=== PATIENT | male | born 1985 | race Caucasian/White ===

== ENCOUNTER 2019-02-21 02:41 | Observation (INO) | payer SELFPAY ==
[~2019-02-21] VITALS: Ht 188 cm; Wt 111.6 kg
[2019-02-21] VITALS (7 sets, daily range): BP systolic 126–139; BP diastolic 82–93
[2019-02-21] MEDS ORDERED: SODIUM CHLORIDE 0.9% 1000ML 1,000 ML IV STA ×2 (02:45→03:27)
[2019-02-21] MEDS ORDERED: PANTOPRAZOLE 40 MG 10ML VIAL IV STA (02:45)
[2019-02-21] MEDS ORDERED: CEFEPIME HCL 2 GM VIAL IV ONE (02:45)
[2019-02-21] MEDS ORDERED: MORPHINE SULFATE INJ 4 MG/ML INJ 1ML IV STA (02:45)
[2019-02-21] MEDS ORDERED: ONDANSETRON HCL INJ 2MG/ML 2ML 2 MG/ML VIAL IV ONE (02:45)
[2019-02-21] MEDS ORDERED: ONDANSETRON HCL INJ 2MG/ML 2ML 2 MG/ML VIAL ONE (03:04)
[2019-02-21] MEDS ORDERED: PANTOPRAZOLE 40 MG 10ML VIAL ONE (03:05)
[2019-02-21] MEDS ORDERED: SODIUM CHLORIDE 0.9% 100 ML ONE (03:06)
[2019-02-21] MEDS ORDERED: no home meds (03:14)
[2019-02-21 03:15] LABS: BASOPHILS % 0.3 % (0.0-1.0); EOSINOPHILS % 0.2 % (0.0-6.0); HEMATOCRIT 48.5 % (38.2-49.6); HEMOGLOBIN 17.1 g/dL (14.0-18.0); LYMPHOCYTES # (AUTO) 2.3 (1.0-3.2); LYMPHOCYTES % 17.2 % (18.0-39.1); MEAN CORPUSCULAR HEMOGLOBIN 32.8 pg (28-32); MEAN CORPUSCULAR HGB CONC 35.3 g/dL (31-35); MEAN CORPUSCULAR VOLUME 93.1 fL (81-99); MONOCYTES # (AUTO) 0.8 (0.2-0.8); MONOCYTES % 6.4 % (4.4-11.3); NEUTROPHILS # (AUTO) 9.9 (2.1-6.9); NEUTROPHILS % 75.6 % (38.7-80.0); PLATELET COUNT 330 x10e3/uL (140-360); RED BLOOD COUNT 5.21 x10e6/uL (4.3-5.7); RED CELL DISTRIBUTION WIDTH 13.9 % (11.7-14.4)
[2019-02-21 03:21] LABS: INR 0.91; PROTHROMBIN TIME 12.7 seconds (11.9-14.5)
[2019-02-21 03:22] LABS: PARTIAL THROMBOPLASTIN TIME 27.4 seconds (23.8-35.5)
[2019-02-21 03:31] LABS: ALBUMIN 3.7 g/dL (3.5-5.0); ALBUMIN/GLOBULIN RATIO 0.9 (0.8-2.0); ANION GAP 20.1 mmol/L (8-16); CALCIUM 9.7 mg/dL (8.4-10.2); CREATININE, SERUM 1.47 mg/dL (0.72-1.25); POTASSIUM 3.1 mmol/L (3.5-5.1)
[2019-02-21] MEDS ORDERED: DIPHENHYDRAMINE HCL INJ 50 MG/ML VIAL IV PRN (03:45)
[2019-02-21] MEDS ORDERED: PROMETHAZINE 25MG/ NS 50ML (IV) IV PRN (03:45)
[2019-02-21] MEDS: D5.45%NS/KCL 20MEQ 1,000 ML IV SCH ×3 (03:55→19:45)
[2019-02-21] MEDS ORDERED: D5.45%NS/KCL 20MEQ 1,000 ML IV SCH (03:57)
--- NOTE | 2019-02-21 04:30 | NUR ---
Pt arrived to the unit from er in a stretcher with c/o n/v/ abd pain.aaox3.ambulates.iv #20 g to right ac.pt is nauseated.medication given.assessment done.no resp.distress.as per report from er is aware of the consults.oriented to the unit.bed locked and in lowest position.phone and call light within reach.instructed to call for assistance as needed.maintaining npo.
--- NOTE | 2019-02-21 04:39 | Diagnostic Imaging Report ---
EXAMINATION: ABDOMEN ACUTE SERIES W/PA CXR INDICATION: ^abdominal pain, mid chest pain COMPARISON: None FINDINGS: TUBES and LINES: None. LUNGS: Lungs are well inflated. There are bibasilar atelectasis. There is no evidence of pneumonia or pulmonary edema. PLEURA: No pleural effusion or pneumothorax. HEART AND MEDIASTINUM: The cardiomediastinal silhouette is unremarkable. BONES AND SOFT TISSUES: No acute osseous lesion. Soft tissues are unremarkable. ABDOMEN: No free air under the diaphragm. IMPRESSION: No acute thoracic abnormality. No acute abdominal abnormality. Signed by: Dr. Mauro Uriostegui M.D. on 02/21/2019 4:36 AM
--- NOTE | 2019-02-21 06:50 | NUR ---
REPORT GIVEN TO THE ONCOMING RN.WALKING ROUNDS DONE.STABLE CONDITION.
--- NOTE | 2019-02-21 07:34 | NUR ---
RECEIVED PATIENT IN REPORT THIS AM. PATIENT AWAKE IN BED NO SIGNS OF DISTRESS AT THIS TIME. CALL LIGHT IN REACH WILL CONTINUE TO MONITOR.
[2019-02-21] MEDS: ONDANSETRON HCL INJ 2MG/ML 2ML 2 MG/ML VIAL IV PRN ×4 (07:56→21:05)
[2019-02-21] MEDS: MORPHINE SULFATE INJ 4 MG/ML INJ 1ML IV PRN ×4 (07:57→21:05)
[2019-02-21] MEDS ORDERED: PANTOPRAZOLE 40 MG 10ML VIAL IV SCH (09:00)
--- NOTE | 2019-02-21 09:45 | NUR ---
PATIENT A/O X3, EVEN RESPIRATIONS ON RA. BOWEL SOUNDS ACTIVE, SKIN INTACT, NO EDEMA. NO VOMITING THIS MORNING. PATIENT NPO AT THIS TIME FOR POSSIBLE EGD TODAY. RIGHT AC 20 GAUGE WITH [id number] @ 125 CC/HR. PATIENT AMBULATORY AND VOIDS IN TOILET. CALL LIGHT IN REACH WILL CONTINUE TO MONITOR.
[2019-02-21] MEDS ORDERED: POTASSIUM CHLORIDE 20 MEQ TAB CR PO NR (10:30)
[2019-02-21 12:10] LABS: BASOPHILS % 0.1 % (0.0-1.0); HEMATOCRIT 42.3 % (38.2-49.6); HEMOGLOBIN 14.2 g/dL (14.0-18.0); LYMPHOCYTES # (AUTO) 1.3 (1.0-3.2); MEAN CORPUSCULAR HEMOGLOBIN 32.7 pg (28-32); MEAN CORPUSCULAR HGB CONC 33.6 g/dL (31-35); MEAN CORPUSCULAR VOLUME 97.5 fL (81-99); MONOCYTES # (AUTO) 0.9 (0.2-0.8); MONOCYTES % 5.8 % (4.4-11.3); NEUTROPHILS # (AUTO) 13.7 (2.1-6.9); NEUTROPHILS % 85.7 % (38.7-80.0); PLATELET COUNT 232 x10e3/uL (140-360); RED BLOOD COUNT 4.34 x10e6/uL (4.3-5.7); RED CELL DISTRIBUTION WIDTH 14.5 % (11.7-14.4)
--- NOTE | 2019-02-21 14:30 | NUR ---
PATIENT LEFT FOR EGD AT THIS TIME.
--- NOTE | 2019-02-21 15:38 | NUR ---
PATIENT BACK FROM EGD AT THIS TIME. FULL LIQUID DIET
[2019-02-21] MEDS: FAMOTIDINE 20 MG/2 ML VIAL IV SCH (16:57)
[2019-02-21] MEDS: SUCRALFATE 1 GM/10 ML SUSP NG SCH ×2 (16:57→21:07)
--- NOTE | 2019-02-21 17:32 | Consultation ---
DATE OF CONSULTATION: Gastroenterology Consultation REASON FOR CONSULTATION: Hematemesis. HISTORY OF PRESENT ILLNESS: Mr. Lopez is a pleasant 33-year-old man with below past medical history with insignificant alcohol consumption and heart burn. He yesterday started having severe epigastric pain and reflux with retrosternal burning causing vomiting. He vomited moderate amount of bright red blood. He has not had a bowel movement. He has never had upper endoscopy. He does take antiacids regularly. He has also been drinking. He has elevated LFTs. PAST MEDICAL HISTORY: Migraine. PAST SURGICAL HISTORY: None. FAMILY HISTORY: Positive for cancer in the family including pancreatic. SOCIAL HISTORY: Positive for tobacco, alcohol. MEDICATIONS: Reviewed. Please see [facility] medication reconciliation form. ALLERGIES: REVIEWED. PLEASE SEE [facility] MEDICATION RECONCILIATION FORM. REVIEW OF SYSTEMS: A 12-system review is positive for that mentioned in HPI, otherwise unremarkable. PHYSICAL EXAMINATION: GENERAL: He is calm, alert and oriented, in no acute distress. HEENT: Pupils are equal, round, and reactive to light. NECK: Supple. LUNGS: Clear. CARDIOVASCULAR: S1 and S2. ABDOMEN: Soft, nontender, nondistended. Normal bowel sounds. EXTREMITIES: No clubbing, cyanosis or edema. PSYCHIATRIC: Calm, cooperative. NEUROLOGIC: Nonfocal. HEME/ONC: No bruising or adenopathy. SKIN: He has telangiectasia across his upper chest. Electronic health records were reviewed for laboratory and radiologic studies as well as history. ASSESSMENT: 1. Hematemesis. 2. Alcohol. 3. Migraines. 4. Elevated LFTs, likely alcohol related, unclear at the current time, as he has an underlying chronic liver disease related to this. 5. Spider telangiectasias. PLAN: At the current time, he will continue on H2 escobar. Unfortunately, there is no Protonix available in the hospital due to nation wide shortages per nursing staff. We are replacing his hypokalemia. We will repeat potassium. We will plan for upper endoscopy at our earliest availability. The procedure and risks discussed with him in detail. Thank you very much for asking me to see Mr. Lopez. Any questions or concerns, please do not hesitate to contact me. Gloria Nascimento MD RLS/GERARDO /[id number]
--- NOTE | 2019-02-21 18:10 | Diagnostic Imaging Report ---
EXAM: Right Upper Quadrant Ultrasound INDICATION: Elevated liver function test ^elevated lft COMPARISON: None. TECHNIQUE: Transverse and longitudinal images of the right upper abdomen were obtained. FINDINGS: Liver: Size: 13.6 cm in the right midclavicular line, normal Appearance: Normal echogenicity, smooth contour Mass: No focal masses Gallbladder: Stones/Sludge: None Wall: 0.2 cm Appearance: No wall thickening, pericholecystic fluid or hydrops. Sonographic Smith's Sign: Negative Bile Ducts: Intrahepatic Ducts: No dilatation Extrahepatic Ducts: Common bile duct measures 0.4 cm, no dilatation Pancreas: Not well seen Kidneys: Length: Right 10.2 cm Echogenicity: Normal Collecting System: No hydronephrosis Stone: None Cyst/Mass: None Vessels: Aorta: Not well seen Inferior Vena Cava: Visualized portions are normal Main Portal Vein: 0.9 cm, normal size with hepatopetal flow. Free Fluid: No ascites or pleural effusion IMPRESSION: Slightly limited study due to overlying bowel gas. Otherwise, unremarkable abdominal ultrasound. Signed by: Dr. Rogelio Garcia M.D. on 02/21/2019 6:07 PM
[2019-02-21] MEDS ORDERED: MIDAZOLAM HCL 2 MG/2 ML VIAL ONE (18:13)
[2019-02-21] MEDS ORDERED: FENTANYL CITRATE/PF 100MCG/2 ML INJ ONE (18:13)
[2019-02-21 18:14] LABS: BASOPHILS % 0.2 % (0.0-1.0); EOSINOPHILS % 0.1 % (0.0-6.0); HEMATOCRIT 41.4 % (38.2-49.6); HEMOGLOBIN 13.7 g/dL (14.0-18.0); LYMPHOCYTES # (AUTO) 2.1 (1.0-3.2); LYMPHOCYTES % 16.9 % (18.0-39.1); MEAN CORPUSCULAR HEMOGLOBIN 32.6 pg (28-32); MEAN CORPUSCULAR HGB CONC 33.1 g/dL (31-35); MEAN CORPUSCULAR VOLUME 98.6 fL (81-99); MONOCYTES # (AUTO) 0.9 (0.2-0.8); MONOCYTES % 7.3 % (4.4-11.3); NEUTROPHILS # (AUTO) 9.3 (2.1-6.9); NEUTROPHILS % 75.3 % (38.7-80.0); PLATELET COUNT 216 x10e3/uL (140-360); RED CELL DISTRIBUTION WIDTH 14.6 % (11.7-14.4)
[2019-02-21] MEDS ORDERED: PROPOFOL IV EMULSION 10 MG/ML 20 ML VIAL ONE (18:26)
[2019-02-21] MEDS ORDERED: LIDOCAINE HCL 2% LOCAL INJ 5 ML SDV VIAL INJ ONE (18:26)
[2019-02-22] VITALS: BP 147/79
[2019-02-22] MEDS: MORPHINE SULFATE INJ 4 MG/ML INJ 1ML IV PRN ×4 (01:16→10:31)
[2019-02-22] MEDS: ONDANSETRON HCL INJ 2MG/ML 2ML 2 MG/ML VIAL IV PRN (01:16)
--- NOTE | 2019-02-22 02:14 | History and Physical ---
CHIEF COMPLAINT: Hematemesis, nausea, vomiting, retching. HISTORY OF PRESENT ILLNESS: This is a 33-year-old male, chronic alcohol abuser, about 3 to 4 cans of beer daily; morbidly obese; no other medical issues, comes in with complaints of nausea, vomiting, abdominal pain, and questionable hematemesis that began yesterday. The patient reports that he feels his epigastric burning, ongoing for the last day or two with no relief. He also reports some abdominal pain. Has decreased oral intake. He denies any NSAID use at home. Denies any rectal bleeding or any melenic stool. The patient seen and evaluated at bedside on the medical floor. He is currently doing well, requiring antinausea medication. REVIEW OF SYSTEMS: Pertinent positives: Nausea, vomiting, abdominal pain. Pertinent negative: Denies any chest pain, palpitation, dysuria, hematuria, frequency, urgency, lightheadedness, dizziness, cough, congestion, fever, or any other complaints. The rest of 14-point review of systems have been reviewed with the patient and are negative. ALLERGIES: NO KNOWN DRUG ALLERGIES. HOME MEDICATIONS: None. PAST MEDICAL HISTORY: Chronic alcohol abuser. No other medical issues. FAMILY HISTORY: Hypertension and diabetes. SOCIAL HISTORY: No drugs. He is a social smoker. He does drink several times a day, 3 to 4 beers he reports. PHYSICAL EXAMINATION: VITAL SIGNS: Temperature 99.4, pulse is 100, respiratory rate 20, blood pressure 131/82, pulse ox 98% on room air. GENERAL: No acute distress. Alert and oriented x3. Cooperative on examination. HEENT: Head is normocephalic and atraumatic. Eyes; pupils are equal, round, and reactive to light bilaterally. Extraocular movements are intact bilaterally. NECK: Supple. Good range of motion. Throat, no evidence of erythema or exudate in the posterior pharynx. Has poor dentition. PULMONARY: Clear to auscultation bilaterally. No wheezes, rales, rhonchi, or crackles appreciated. CARDIOVASCULAR: Positive S1, S2. No murmurs, rubs or gallop. ABDOMEN: Soft, nontender, nondistended on palpation. Bowel sounds present. MUSCULOSKELETAL: Strength is 5/5 throughout. No evidence of any muscle deficits on examination. No weakness appreciated. NEUROLOGIC: Cranial nerves II through XII grossly intact. No evidence of any neurological deficits on exam. SKIN: Intact. Warm to touch. Good cap refill. PSYCHIATRIC: Normal affect and mood. EXTREMITIES: No edema. Good range of motion throughout. LAB FINDINGS: Show white count 12, hemoglobin 13.7, hematocrit 41, platelets of 216. Chemistry: Sodium is 137, potassium 3.1, chloride 93, bicarb 24. Anion gap 20. BUN 12, creatinine 1.47. His glucose is 120, calcium 9.7. Total bilirubin was 2.3, AST 252, ALT 163, alkaline phosphatase 103, total protein 7.8, lipase is 37. IMAGING STUDIES: Abdominal x-ray shows no abnormalities. Abdominal ultrasound was consistent, which is just some overlying bowel gas. IMPRESSION: 1. Hematemesis, likely secondary to underlying gastritis. 2. Chronic alcohol abuse. 3. Elevated LFTs, likely alcohol related. 4. Morbidly obese. PLAN: At this time, we are going to continue with IV H2 blockers as currently Protonix is on back order. Replace electrolytes. Continue n.p.o. for now. GI has been consulted, will likely need EGD. We will get a.m. labs. Once he is approved, maybe we could start him on clear liquid diet if GI is in agreement. MD JOSE Tracy/GERARDO /[id number]
[2019-02-22 04:00] VITALS: BP 131/81
[2019-02-22] MEDS: D5.45%NS/KCL 20MEQ 1,000 ML IV SCH (04:15)
[2019-02-22] MEDS: FAMOTIDINE 20 MG/2 ML VIAL IV SCH (05:22)
[2019-02-22 06:33] LABS: BASOPHILS % 0.4 % (0.0-1.0); EOSINOPHILS % 0.3 % (0.0-6.0); HEMATOCRIT 36.1 % (38.2-49.6); LYMPHOCYTES # (AUTO) 2.4 (1.0-3.2); LYMPHOCYTES % 34.6 % (18.0-39.1); MEAN CORPUSCULAR HEMOGLOBIN 32.8 pg (28-32); MEAN CORPUSCULAR HGB CONC 33.2 g/dL (31-35); MEAN CORPUSCULAR VOLUME 98.6 fL (81-99); MONOCYTES # (AUTO) 0.6 (0.2-0.8); MONOCYTES % 8.8 % (4.4-11.3); NEUTROPHILS # (AUTO) 3.9 (2.1-6.9); NEUTROPHILS % 55.5 % (38.7-80.0); PLATELET COUNT 184 x10e3/uL (140-360); RED BLOOD COUNT 3.66 x10e6/uL (4.3-5.7); RED CELL DISTRIBUTION WIDTH 14.6 % (11.7-14.4)
[2019-02-22 06:57] LABS: ALANINE AMINOTRANSFERASE 83 IU/L (0-55); ALBUMIN 2.4 g/dL (3.5-5.0); ALBUMIN/GLOBULIN RATIO 0.8 (0.8-2.0); ALKALINE PHOSPHATASE 71 IU/L (40-150); BLOOD UREA NITROGEN 6 mg/dL (7-26); BUN/CREATININE RATIO 6 (6-25); CALCIUM 7.9 mg/dL (8.4-10.2); CARBON DIOXIDE 28 mmol/L (22-29); CHLORIDE 105 mmol/L (98-107); CREATININE, SERUM 1.03 mg/dL (0.72-1.25); EST GLOMERULAR FILTRATION RATE > 60 ML/MIN (60-); GLUCOSE 110 mg/dL (74-118); SODIUM 138 mmol/L (136-145)
[2019-02-22] MEDS: SUCRALFATE 1 GM/10 ML SUSP NG SCH ×2 (09:07→11:46)
[2019-02-22 09:37] VITALS: BP 139/90
[2019-02-22 11:39] VITALS: BP 139/90
[2019-02-22] MEDS ORDERED: TRAMADOL HCL 50 MG TAB PO NR (12:15)
[2019-02-22 12:29] VITALS: BP 128/81
[2019-02-22] MEDS ORDERED: ULTRAM50 MG PO (14:11)
[2019-02-22] MEDS ORDERED: PANTOPRAZOLE SO40 MG PO (14:12)
[2019-02-22] MEDS ORDERED: CARAFATE1 GM/10 ML PO (14:13)
--- NOTE | 2019-02-22 14:43 | NUR ---
PATIENT VOICED THAT DISCHARGE INSTRUCTIONS WERE UNDERSTOOD, IV REMOVED, WHEELED OUT VIA WHEELCHAIR, AND DEPARTED IN VEHICLE
--- NOTE | 2019-02-22 18:48 | Discharge Summary ---
FINAL DISCHARGE DIAGNOSES: 1. Status post esophagogastroduodenoscopy that showed gastritis, esophagitis, and the peptic ulcer that was actively bleeding, but much improved. 2. Abdominal pain secondary to end-stage renal disease. 3. Chronic alcohol abuse. 4. Elevated transaminases secondary to alcohol abuse. CONSULTANTS: GI. VITAL SIGNS: Temperature 98, pulse 85, respiratory rate is 20, blood pressure 129/90, and pulse ox is 94% on room air. LABORATORY DATA: Lab findings show white count 6.9, hemoglobin 12, hematocrit is 36.1, and platelets of 184. Chemistry; sodium 138, potassium 4, chloride 105, bicarb 28, anion gap of 9, BUN is 6, creatinine is 1, calcium is 7.9. Total bilirubin is 2.2, AST 89, ALT 83, alkaline phosphatase 71, albumin 2.4. Lipase was 37. Coagulation; PT 12, INR 0.91, PTT 27. IMAGING STUDIES: Abdominal ultrasound shows otherwise unremarkable abdominal ultrasound with negative findings. X-ray of the abdomen was negative. HOSPITAL COURSE: This is a 33-year-old male, who came into the ED with complaints of abdominal pain, nausea, vomiting. GI was consulted. Imaging studies with abdominal ultrasound found to be negative. X-ray of the abdomen also found to be negative. The patient underwent EGD that showed gastritis, esophagitis and a peptic ulcer that was actively bleeding. It was cauterized. The patient was started on Pepcid twice daily while here in the hospital. The patient's labs were stable now. There is no evidence of any active bleeding. The patient was then cleared for discharge by GI for discharge home. The patient was advised to follow up with GI and PCP in about one week's time. The patient was educated about alcohol cessation. On the day of discharge, vital signs stable, labs are stable. The patient was seen and evaluated, examined thoroughly on the day of discharge and no other complaints. The patient verbalized understanding and agreed to plan of care, with followup appointment as an outpatient with the primary care physician in 1 week time and GI in 1-2 weeks' time. MEDICATIONS: See med reconciliation form. DISPOSITION: Home. CONDITION: Stable. DIET: Heart healthy. In any event of new or worsening symptoms, the patient is advised to come back to the ED for further evaluation. Discharge summary took greater than 35 minutes. Once again, the patient has been cleared for discharge by GI. MD JOSE Tracy/GERARDO /[id number]
== END 2019-02-22 14:37 | disposition home or self-care (01) ==
LOC: ER 02:41 → ERHOLD 03:57 → MED/SURG 04:28
PROVIDERS: ADMIT Internal Medicine; ATTEND Internal Medicine
DX: K29.70 Gastritis, unspecified, without bleeding (principal); K25.4 Chronic or unspecified gastric ulcer with hemorrhage; F10.20 Alcohol dependence, uncomplicated; K76.9 Liver disease, unspecified; E66.01 Morbid (severe) obesity due to excess calories; Z68.31 Body mass index [BMI] 31.0-31.9, adult
CPT/HCPCS: 36415 ×2; 43239; 43255; 74022; 76705; 80053 ×2; 83690; 84132; 85025 ×2; 85610; 85730; 86850; 86900; 88305; 88312; 93005; 96374; 99284; C9113; G0378 ×2; J0692; J2001; J2250; J2270 ×2; J2405 ×2; J2550; J2704; J7030; J7050

== ENCOUNTER 2021-07-27 09:44 | Inpatient (IN) | payer OTHER, SELFPAY ==
[~2021-07-27] VITALS: Ht 188 cm; Wt 151.5 kg
[~2021-07-27 09:44] MED LIST: CARAFATE1 GM/10 ML PO; PANTOPRAZOLE SO40 MG PO; ULTRAM50 MG PO; no home meds
[2021-07-27] MEDS ORDERED: IBUPROFEN 600 MG TAB PO NR (10:00)
[2021-07-27] MEDS ORDERED: SODIUM CHLORIDE 0.9% 1000ML 1,000 ML IV SCH (10:00)
[2021-07-27] MEDS ORDERED: DEXAMETHASONE SOD PHOS 10 MG/1 ML VIAL IV NR (10:00)
[2021-07-27 10:05] LABS: BASOPHILS % 0.2 % (0.0-1.0); HEMATOCRIT 49.1 % (38.2-49.6); LYMPHOCYTES # (AUTO) 0.6 (1.0-3.2); LYMPHOCYTES % 12.9 % (18.0-39.1); MEAN CORPUSCULAR HEMOGLOBIN 32.1 pg (28-32); MEAN CORPUSCULAR HGB CONC 32.6 g/dL (31-35); MEAN CORPUSCULAR VOLUME 98.6 fL (81-99); MONOCYTES # (AUTO) 0.1 (0.2-0.8); MONOCYTES % 2.8 % (4.4-11.3); NEUTROPHILS # (AUTO) 3.6 (2.1-6.9); NEUTROPHILS % 83.4 % (38.7-80.0); PLATELET COUNT 197 x10e3/uL (140-360); RED BLOOD COUNT 4.98 x10e6/uL (4.3-5.7); RED CELL DISTRIBUTION WIDTH 13.8 % (11.7-14.4)
[2021-07-27 10:26] LABS: ALBUMIN 3.2 g/dL (3.5-5.0); ALBUMIN/GLOBULIN RATIO 0.7 (0.8-2.0); ANION GAP 19.3 mmol/L (8-16); CALCIUM 9.1 mg/dL (8.4-10.2); CREATININE, SERUM 0.96 mg/dL (0.72-1.25); POTASSIUM 4.3 mmol/L (3.5-5.1)
[2021-07-27] MEDS ORDERED: ENOXAPARIN INJ 80 MG/0.8 ML SYR SC NR (11:10)
[2021-07-27] MEDS ORDERED: REMDESIVIR 200MG 200 MG in SODIUM CHLORIDE 0.9% 100 ML IV ONE (11:30)
[2021-07-27] MEDS ORDERED: Morphine 4mg Syringe 4 MG/ML INJ IV PRN (11:45)
[2021-07-27] MEDS: ASCORBIC ACID 500 MG TAB PO SCH (17:52)
[2021-07-27] MEDS ORDERED: CEFTRIAXONE 1 GM in SODIUM CHLORIDE 0.9% 50ML 50 ML IV SCH (18:00)
[2021-07-27] MEDS: ACETAMINOPHEN 325 MG TAB PO PRN (19:54)
[2021-07-28] VITALS (11 sets, daily range): BP systolic 113–138; BP diastolic 82–105
[2021-07-28 05:41] LABS: BASOPHILS % 0.3 % (0.0-1.0); HEMATOCRIT 46.2 % (38.2-49.6); HEMOGLOBIN 15.3 g/dL (14.0-18.0); LYMPHOCYTES % 25.2 % (18.0-39.1); MEAN CORPUSCULAR HEMOGLOBIN 32.4 pg (28-32); MEAN CORPUSCULAR HGB CONC 33.1 g/dL (31-35); MEAN CORPUSCULAR VOLUME 97.9 fL (81-99); MONOCYTES # (AUTO) 0.3 (0.2-0.8); MONOCYTES % 7.5 % (4.4-11.3); NEUTROPHILS # (AUTO) 2.6 (2.1-6.9); NEUTROPHILS % 66.7 % (38.7-80.0); PLATELET COUNT 183 x10e3/uL (140-360); RED BLOOD COUNT 4.72 x10e6/uL (4.3-5.7); RED CELL DISTRIBUTION WIDTH 13.3 % (11.7-14.4)
[2021-07-28 06:29] LABS: ALBUMIN 2.7 g/dL (3.5-5.0); ALBUMIN/GLOBULIN RATIO 0.7 (0.8-2.0); ANION GAP 17.3 mmol/L (8-16); CALCIUM 8.3 mg/dL (8.4-10.2); CREATININE, SERUM 0.79 mg/dL (0.72-1.25); MAGNESIUM 1.3 MG/DL (1.3-2.1); POTASSIUM 4.3 mmol/L (3.5-5.1)
[2021-07-28 08:15] LABS: LYMPHOCYTES % (MANUAL) 30 % (19-48); MONOCYTES % (MANUAL) 5 % (3.4-9.0); NEUTROPHILS % (MANUAL) 65 % (40-74)
[2021-07-28 08:16] LABS: PLATELET ESTIMATE ADEQUATE; PLATELET MORPHOLOGY COMMENT FEW LARGE; RBC MORPHOLOGY COMMENT NORMAL
[2021-07-28] MEDS: ZINC SULFATE 220 MG CAP PO SCH (08:50)
[2021-07-28] MEDS: ASCORBIC ACID 500 MG TAB PO SCH ×2 (08:50→16:24)
[2021-07-28] MEDS: ENOXAPARIN SOD INJ 40 MG/0.4 ML SYR SC SCH ×2 (08:50→20:36)
[2021-07-28] MEDS ORDERED: LOPERAMIDE HCL 2 MG CAP PO ONE (09:00)
[2021-07-28] MEDS: LOPERAMIDE HCL 2 MG CAP PO PRN ×4 (09:50→19:04)
[2021-07-28] MEDS: ONDANSETRON HCL INJ 2MG/ML 2ML 2 MG/ML VIAL IV PRN (10:20)
[2021-07-28] MEDS ORDERED: CALCIUM CARBONATE 500 MG CHEWABLE TABS PO SCH (11:30)
[2021-07-28] MEDS: REMDESIVIR 100MG 100 MG in SODIUM CHLORIDE 0.9% 100 ML IV SCH (12:17)
[2021-07-28] MEDS: DEXAMETHASONE SOD PHOS 10 MG/1 ML VIAL IV SCH (12:17)
[2021-07-28] MEDS ORDERED: SODIUM CHLORIDE 0.9% 500ML 500 ML IV STA (12:46)
[2021-07-28] MEDS ORDERED: PREDNISONE50 MG PO (15:36)
[2021-07-28] MEDS: GUAIFENESIN/CODEINE 5 ML LIQD PO PRN ×2 (16:47→20:37)
[2021-07-28] MEDS: ACETAMINOPHEN 325 MG TAB PO PRN (20:37)
[2021-07-29] VITALS (24 sets, daily range): BP systolic 114–139; BP diastolic 73–98
[2021-07-29] MEDS: ZOLPIDEM TARTRATE 5 MG TAB PO PRN ×2 (00:16→21:17)
[2021-07-29] MEDS: LOPERAMIDE HCL 2 MG CAP PO PRN ×2 (01:05→08:32)
[2021-07-29] MEDS: GUAIFENESIN/CODEINE 5 ML LIQD PO PRN ×5 (01:05→23:50)
[2021-07-29 06:57] LABS: HEMATOCRIT 43.2 % (38.2-49.6); HEMOGLOBIN 14.6 g/dL (14.0-18.0); LYMPHOCYTES % 15.7 % (18.0-39.1); MEAN CORPUSCULAR HEMOGLOBIN 32.1 pg (28-32); MEAN CORPUSCULAR HGB CONC 33.8 g/dL (31-35); MEAN CORPUSCULAR VOLUME 94.9 fL (81-99); MONOCYTES # (AUTO) 0.7 (0.2-0.8); MONOCYTES % 10.3 % (4.4-11.3); NEUTROPHILS # (AUTO) 4.6 (2.1-6.9); NEUTROPHILS % 73.5 % (38.7-80.0); PLATELET COUNT 201 x10e3/uL (140-360); RED BLOOD COUNT 4.55 x10e6/uL (4.3-5.7); RED CELL DISTRIBUTION WIDTH 13.4 % (11.7-14.4)
[2021-07-29 07:36] LABS: ALBUMIN 2.7 g/dL (3.5-5.0); ALBUMIN/GLOBULIN RATIO 0.7 (0.8-2.0); ANION GAP 17.7 mmol/L (8-16); CALCIUM 7.9 mg/dL (8.4-10.2); CREATININE, SERUM 0.76 mg/dL (0.72-1.25); POTASSIUM 3.7 mmol/L (3.5-5.1)
[2021-07-29] MEDS: ZINC SULFATE 220 MG CAP PO SCH (08:26)
[2021-07-29] MEDS: DEXAMETHASONE SOD PHOS 10 MG/1 ML VIAL IV SCH (08:26)
[2021-07-29] MEDS: ASCORBIC ACID 500 MG TAB PO SCH ×2 (08:26→16:36)
[2021-07-29] MEDS: ENOXAPARIN SOD INJ 40 MG/0.4 ML SYR SC SCH ×2 (08:26→20:01)
[2021-07-29] MEDS ORDERED: CHOLESTYRAMINE 4 GM PACKET PO PRN (10:45)
[2021-07-29] MEDS: VANCOMYCIN 250MG/5ML ORAL SOLN PO SCH ×3 (11:28→23:47)
[2021-07-29] MEDS: REMDESIVIR 100MG 100 MG in SODIUM CHLORIDE 0.9% 100 ML IV SCH (11:28)
[2021-07-29] MEDS: Morphine 2mg Syringe 2 MG/ML SYR IV PRN (16:36)
[2021-07-30] VITALS (24 sets, daily range): BP systolic 114–142; BP diastolic 69–121
[2021-07-30 04:55] LABS: HEMATOCRIT 43.3 % (38.2-49.6); HEMOGLOBIN 14.6 g/dL (14.0-18.0); LYMPHOCYTES # (AUTO) 1.1 (1.0-3.2); MEAN CORPUSCULAR HEMOGLOBIN 32.3 pg (28-32); MEAN CORPUSCULAR HGB CONC 33.7 g/dL (31-35); MEAN CORPUSCULAR VOLUME 95.8 fL (81-99); MONOCYTES # (AUTO) 0.7 (0.2-0.8); MONOCYTES % 11.1 % (4.4-11.3); NEUTROPHILS # (AUTO) 4.5 (2.1-6.9); NEUTROPHILS % 71.6 % (38.7-80.0); PLATELET COUNT 190 x10e3/uL (140-360); RED BLOOD COUNT 4.52 x10e6/uL (4.3-5.7); RED CELL DISTRIBUTION WIDTH 13.4 % (11.7-14.4)
[2021-07-30] MEDS: GUAIFENESIN/CODEINE 5 ML LIQD PO PRN ×5 (05:09→21:47)
[2021-07-30 05:19] LABS: ALBUMIN 2.7 g/dL (3.5-5.0); ALBUMIN/GLOBULIN RATIO 0.7 (0.8-2.0); ANION GAP 16.4 mmol/L (8-16); CREATININE, SERUM 0.71 mg/dL (0.72-1.25); POTASSIUM 3.4 mmol/L (3.5-5.1)
[2021-07-30] MEDS: VANCOMYCIN 250MG/5ML ORAL SOLN PO SCH ×4 (05:27→23:22)
[2021-07-30] MEDS: Morphine 2mg Syringe 2 MG/ML SYR IV PRN (08:06)
[2021-07-30] MEDS: ENOXAPARIN SOD INJ 40 MG/0.4 ML SYR SC SCH ×2 (08:06→19:23)
[2021-07-30] MEDS: DEXAMETHASONE SOD PHOS 10 MG/1 ML VIAL IV SCH (08:40)
[2021-07-30] MEDS: ASCORBIC ACID 500 MG TAB PO SCH ×2 (08:52→17:08)
[2021-07-30] MEDS: ZINC SULFATE 220 MG CAP PO SCH (08:52)
[2021-07-30] MEDS: BENZONATATE 100 MG CAP PO PRN ×3 (11:11→23:23)
[2021-07-30] MEDS: REMDESIVIR 100MG 100 MG in SODIUM CHLORIDE 0.9% 100 ML IV SCH (11:11)
[2021-07-30] MEDS ORDERED: SALINE 0.65% NAS SOLN 1 SPRAY BTL PRN (11:30)
[2021-07-30] MEDS: BARICITINIB 2 MG TABLET PO SCH (17:10)
[2021-07-30] MEDS: ONDANSETRON HCL INJ 2MG/ML 2ML 2 MG/ML VIAL IV PRN ×2 (18:26→23:59)
[2021-07-30] MEDS: ACETAMINOPHEN 325 MG TAB PO PRN (19:45)
[2021-07-30] MEDS: ZOLPIDEM TARTRATE 5 MG TAB PO PRN (21:47)
[2021-07-31] VITALS (23 sets, daily range): BP systolic 13–149; BP diastolic 63–107
[2021-07-31] MEDS: GUAIFENESIN/CODEINE 5 ML LIQD PO PRN ×5 (02:18→23:45)
[2021-07-31] MEDS: ACETAMINOPHEN 325 MG TAB PO PRN ×2 (05:34→17:05)
[2021-07-31] MEDS: VANCOMYCIN 250MG/5ML ORAL SOLN PO SCH ×4 (05:34→23:45)
[2021-07-31 06:08] LABS: HEMATOCRIT 43.1 % (38.2-49.6); HEMOGLOBIN 14.6 g/dL (14.0-18.0); LYMPHOCYTES # (AUTO) 1.4 (1.0-3.2); LYMPHOCYTES % 24.3 % (18.0-39.1); MEAN CORPUSCULAR HEMOGLOBIN 32.1 pg (28-32); MEAN CORPUSCULAR HGB CONC 33.9 g/dL (31-35); MEAN CORPUSCULAR VOLUME 94.7 fL (81-99); MONOCYTES # (AUTO) 0.6 (0.2-0.8); MONOCYTES % 11.5 % (4.4-11.3); NEUTROPHILS # (AUTO) 3.5 (2.1-6.9); NEUTROPHILS % 63.7 % (38.7-80.0); PLATELET COUNT 179 x10e3/uL (140-360); RED BLOOD COUNT 4.55 x10e6/uL (4.3-5.7); RED CELL DISTRIBUTION WIDTH 13.3 % (11.7-14.4)
[2021-07-31 06:32] LABS: ALBUMIN 2.9 g/dL (3.5-5.0); ALBUMIN/GLOBULIN RATIO 0.9 (0.8-2.0); ANION GAP 17.3 mmol/L (8-16); CREATININE, SERUM 0.67 mg/dL (0.72-1.25); POTASSIUM 3.3 mmol/L (3.5-5.1)
[2021-07-31] MEDS: ENOXAPARIN SOD INJ 40 MG/0.4 ML SYR SC SCH ×2 (08:05→20:09)
[2021-07-31] MEDS: ZINC SULFATE 220 MG CAP PO SCH (08:45)
[2021-07-31] MEDS: ASCORBIC ACID 500 MG TAB PO SCH ×2 (08:45→17:05)
[2021-07-31] MEDS: BARICITINIB 2 MG TABLET PO SCH (08:45)
[2021-07-31] MEDS: BENZONATATE 100 MG CAP PO PRN ×2 (08:45→17:05)
[2021-07-31] MEDS: DEXAMETHASONE SOD PHOS 10 MG/1 ML VIAL IV SCH (09:54)
[2021-07-31] MEDS ORDERED: POTASSIUM CHLORIDE 20 MEQ TAB CR PO NR (12:30)
[2021-07-31] MEDS: REMDESIVIR 100MG 100 MG in SODIUM CHLORIDE 0.9% 100 ML IV SCH (12:43)
[2021-07-31] MEDS: DEXMEDETOMIDINE 100 ML IV PRN (15:18)
[2021-08-01] VITALS (26 sets, daily range): BP systolic 94–159; BP diastolic 51–101
[2021-08-01] MEDS: ONDANSETRON HCL INJ 2MG/ML 2ML 2 MG/ML VIAL IV PRN ×3 (00:38→23:23)
[2021-08-01 05:29] LABS: BASOPHILS % 0.1 % (0.0-1.0); EOSINOPHILS % 0.3 % (0.0-6.0); HEMATOCRIT 46.6 % (38.2-49.6); HEMOGLOBIN 15.9 g/dL (14.0-18.0); LYMPHOCYTES # (AUTO) 0.9 (1.0-3.2); LYMPHOCYTES % 8.4 % (18.0-39.1); MEAN CORPUSCULAR HEMOGLOBIN 32.4 pg (28-32); MEAN CORPUSCULAR HGB CONC 34.1 g/dL (31-35); MEAN CORPUSCULAR VOLUME 94.9 fL (81-99); MONOCYTES # (AUTO) 0.7 (0.2-0.8); MONOCYTES % 6.7 % (4.4-11.3); NEUTROPHILS # (AUTO) 8.8 (2.1-6.9); NEUTROPHILS % 83.7 % (38.7-80.0); PLATELET COUNT 177 x10e3/uL (140-360); RED BLOOD COUNT 4.91 x10e6/uL (4.3-5.7); RED CELL DISTRIBUTION WIDTH 13.1 % (11.7-14.4)
[2021-08-01 05:44] LABS: ALBUMIN 3.1 g/dL (3.5-5.0); ALBUMIN/GLOBULIN RATIO 0.8 (0.8-2.0); CALCIUM 8.9 mg/dL (8.4-10.2); CREATININE, SERUM 0.72 mg/dL (0.72-1.25)
[2021-08-01] MEDS: VANCOMYCIN 250MG/5ML ORAL SOLN PO SCH ×4 (06:04→23:23)
[2021-08-01] MEDS: Morphine 2mg Syringe 2 MG/ML SYR IV PRN ×3 (06:07→13:59)
[2021-08-01] MEDS: DEXMEDETOMIDINE 100 ML IV PRN ×2 (07:16→07:24)
[2021-08-01] MEDS: ACETAMINOPHEN 325 MG TAB PO PRN ×2 (07:31→21:06)
[2021-08-01] MEDS: ENOXAPARIN SOD INJ 40 MG/0.4 ML SYR SC SCH ×2 (08:03→20:28)
[2021-08-01] MEDS: DEXAMETHASONE SOD PHOS 10 MG/1 ML VIAL IV SCH (09:03)
[2021-08-01] MEDS: ZINC SULFATE 220 MG CAP PO SCH (09:03)
[2021-08-01] MEDS: ASCORBIC ACID 500 MG TAB PO SCH ×2 (09:03→16:40)
[2021-08-01] MEDS: BARICITINIB 2 MG TABLET PO SCH (09:03)
[2021-08-01] MEDS: GUAIFENESIN/CODEINE 5 ML LIQD PO PRN ×4 (09:43→23:23)
[2021-08-01] MEDS: BENZONATATE 100 MG CAP PO PRN ×3 (09:43→23:23)
[2021-08-01] MEDS ORDERED: LOPERAMIDE HCL 2 MG CAP PO NR (12:30)
[2021-08-01] MEDS ORDERED: KETOROLAC TROMETHAMINE 30 MG/ML VIAL IV STA (16:24)
[2021-08-01] MEDS ORDERED: CEPACOL SORE THROAT LOZENGES PO PRN (16:30)
[2021-08-01] MEDS: LOPERAMIDE HCL 2 MG CAP PO PRN (20:30)
[2021-08-01] MEDS: ZOLPIDEM TARTRATE 5 MG TAB PO PRN (21:06)
[2021-08-02] VITALS (17 sets, daily range): BP systolic 110–180; BP diastolic 66–137
[2021-08-02] MEDS: Morphine 2mg Syringe 2 MG/ML SYR IV PRN (00:55)
[2021-08-02] MEDS: GUAIFENESIN/CODEINE 5 ML LIQD PO PRN ×2 (03:58→20:56)
[2021-08-02 05:06] LABS: BASOPHILS % 0.2 % (0.0-1.0); EOSINOPHILS # (AUTO) 0.1 (0.0-0.4); EOSINOPHILS % 0.6 % (0.0-6.0); HEMATOCRIT 45.5 % (38.2-49.6); HEMOGLOBIN 15.2 g/dL (14.0-18.0); LYMPHOCYTES # (AUTO) 0.8 (1.0-3.2); LYMPHOCYTES % 8.4 % (18.0-39.1); MEAN CORPUSCULAR HEMOGLOBIN 32.1 pg (28-32); MEAN CORPUSCULAR HGB CONC 33.4 g/dL (31-35); MONOCYTES # (AUTO) 0.6 (0.2-0.8); MONOCYTES % 6.2 % (4.4-11.3); NEUTROPHILS # (AUTO) 8.1 (2.1-6.9); NEUTROPHILS % 83.9 % (38.7-80.0); PLATELET COUNT 208 x10e3/uL (140-360); RED BLOOD COUNT 4.74 x10e6/uL (4.3-5.7)
[2021-08-02 05:31] LABS: ALBUMIN/GLOBULIN RATIO 0.7 (0.8-2.0); ANION GAP 16.8 mmol/L (8-16); CALCIUM 8.8 mg/dL (8.4-10.2); CREATININE, SERUM 0.84 mg/dL (0.72-1.25); POTASSIUM 3.8 mmol/L (3.5-5.1)
[2021-08-02] MEDS: VANCOMYCIN 250MG/5ML ORAL SOLN PO SCH ×2 (06:08→12:47)
[2021-08-02] MEDS ORDERED: ACETAMINOPHEN 1000 MG/100 ML IV STA (07:56)
[2021-08-02] MEDS: DEXAMETHASONE SOD PHOS 10 MG/1 ML VIAL IV SCH (09:08)
[2021-08-02] MEDS: ZINC SULFATE 220 MG CAP PO SCH (09:45)
[2021-08-02] MEDS: ASCORBIC ACID 500 MG TAB PO SCH ×2 (09:45→17:07)
[2021-08-02] MEDS: BARICITINIB 2 MG TABLET PO SCH (09:45)
[2021-08-02] MEDS: PIPERACILLIN/TAZOBACTAM 3.375 GM in SODIUM CHLORIDE 0.9% 50ML 50 ML IV SCH ×3 (10:43→20:56)
[2021-08-02] MEDS: DEXMEDETOMIDINE 100 ML IV PRN (19:20)
[2021-08-02] MEDS: ACETAMINOPHEN 325 MG TAB PO PRN (19:20)
[2021-08-02] MEDS: ENOXAPARIN SOD INJ 40 MG/0.4 ML SYR SC SCH (20:56)
[2021-08-02] MEDS: ZOLPIDEM TARTRATE 5 MG TAB PO PRN (23:03)
[2021-08-03] VITALS (15 sets, daily range): BP systolic 102–186; BP diastolic 63–152
[2021-08-03] MEDS: GUAIFENESIN/CODEINE 5 ML LIQD PO PRN ×5 (01:01→20:49)
[2021-08-03] MEDS: ACETAMINOPHEN 325 MG TAB PO PRN ×2 (02:09→20:50)
[2021-08-03] MEDS ORDERED: DEXMEDETOMIDINE 400MCG/NS100ML 100 ML IV ONE (02:55)
[2021-08-03] MEDS: DEXMEDETOMIDINE 100 ML IV PRN (02:58)
[2021-08-03] MEDS: PIPERACILLIN/TAZOBACTAM 3.375 GM in SODIUM CHLORIDE 0.9% 50ML 50 ML IV SCH ×4 (04:41→22:34)
[2021-08-03 08:05] LABS: BASOPHILS % 0.1 % (0.0-1.0); EOSINOPHILS # (AUTO) 0.3 (0.0-0.4); HEMATOCRIT 47.1 % (38.2-49.6); HEMOGLOBIN 15.7 g/dL (14.0-18.0); LYMPHOCYTES # (AUTO) 0.6 (1.0-3.2); LYMPHOCYTES % 5.8 % (18.0-39.1); MEAN CORPUSCULAR HEMOGLOBIN 32.4 pg (28-32); MEAN CORPUSCULAR HGB CONC 33.3 g/dL (31-35); MEAN CORPUSCULAR VOLUME 97.3 fL (81-99); MONOCYTES # (AUTO) 0.5 (0.2-0.8); MONOCYTES % 5.1 % (4.4-11.3); NEUTROPHILS # (AUTO) 9.1 (2.1-6.9); NEUTROPHILS % 85.2 % (38.7-80.0); PLATELET COUNT 193 x10e3/uL (140-360); RED BLOOD COUNT 4.84 x10e6/uL (4.3-5.7); RED CELL DISTRIBUTION WIDTH 13.1 % (11.7-14.4)
[2021-08-03] MEDS: BENZONATATE 100 MG CAP PO PRN ×2 (08:20→16:40)
[2021-08-03 08:31] LABS: ALBUMIN 2.6 g/dL (3.5-5.0); ALBUMIN/GLOBULIN RATIO 0.6 (0.8-2.0); ANION GAP 15.1 mmol/L (8-16); CALCIUM 8.8 mg/dL (8.4-10.2); CREATININE, SERUM 0.82 mg/dL (0.72-1.25); POTASSIUM 4.1 mmol/L (3.5-5.1)
[2021-08-03] MEDS: IBUPROFEN 400 MG TAB PO PRN (09:00)
[2021-08-03] MEDS: ZINC SULFATE 220 MG CAP PO SCH (09:44)
[2021-08-03] MEDS: ENOXAPARIN SOD INJ 40 MG/0.4 ML SYR SC SCH ×2 (09:44→20:48)
[2021-08-03] MEDS: ASCORBIC ACID 500 MG TAB PO SCH ×2 (09:44→16:26)
[2021-08-03] MEDS: DEXAMETHASONE SOD PHOS 10 MG/1 ML VIAL IV SCH (09:44)
[2021-08-03] MEDS: LOPERAMIDE HCL 2 MG CAP PO PRN ×2 (11:53→20:49)
[2021-08-03] MEDS: ZOLPIDEM TARTRATE 5 MG TAB PO PRN (20:49)
[2021-08-03] MEDS: ONDANSETRON HCL INJ 2MG/ML 2ML 2 MG/ML VIAL IV PRN (20:49)
[2021-08-03] MEDS: Morphine 2mg Syringe 2 MG/ML SYR IV PRN (21:22)
[2021-08-04] VITALS (16 sets, daily range): BP systolic 114–163; BP diastolic 56–118
[2021-08-04] MEDS: BENZONATATE 100 MG CAP PO PRN ×4 (00:56→22:00)
[2021-08-04] MEDS: GUAIFENESIN/CODEINE 5 ML LIQD PO PRN ×6 (00:56→22:00)
[2021-08-04] MEDS: Morphine 2mg Syringe 2 MG/ML SYR IV PRN ×6 (01:30→21:59)
[2021-08-04] MEDS: PIPERACILLIN/TAZOBACTAM 3.375 GM in SODIUM CHLORIDE 0.9% 50ML 50 ML IV SCH ×3 (04:00→16:32)
[2021-08-04 05:07] LABS: BASOPHILS % 0.1 % (0.0-1.0); EOSINOPHILS % 0.1 % (0.0-6.0); HEMATOCRIT 47.6 % (38.2-49.6); LYMPHOCYTES # (AUTO) 0.4 (1.0-3.2); LYMPHOCYTES % 3.1 % (18.0-39.1); MEAN CORPUSCULAR HEMOGLOBIN 32.4 pg (28-32); MEAN CORPUSCULAR HGB CONC 33.6 g/dL (31-35); MEAN CORPUSCULAR VOLUME 96.4 fL (81-99); MONOCYTES # (AUTO) 0.5 (0.2-0.8); MONOCYTES % 3.4 % (4.4-11.3); NEUTROPHILS % 92.4 % (38.7-80.0); PLATELET COUNT 204 x10e3/uL (140-360); RED BLOOD COUNT 4.94 x10e6/uL (4.3-5.7)
[2021-08-04] MEDS: ONDANSETRON HCL INJ 2MG/ML 2ML 2 MG/ML VIAL IV PRN (05:07)
[2021-08-04] MEDS: ACETAMINOPHEN 325 MG TAB PO PRN (05:07)
[2021-08-04] MEDS: LOPERAMIDE HCL 2 MG CAP PO PRN ×2 (05:30→21:59)
[2021-08-04 05:40] LABS: ALBUMIN 2.7 g/dL (3.5-5.0); ALBUMIN/GLOBULIN RATIO 0.5 (0.8-2.0); ANION GAP 21.3 mmol/L (8-16); CALCIUM 9.2 mg/dL (8.4-10.2); CREATININE, SERUM 0.72 mg/dL (0.72-1.25); POTASSIUM 4.3 mmol/L (3.5-5.1)
[2021-08-04] MEDS: IBUPROFEN 400 MG TAB PO PRN ×3 (08:23→21:04)
[2021-08-04] MEDS: ENOXAPARIN SOD INJ 40 MG/0.4 ML SYR SC SCH ×2 (09:20→21:04)
[2021-08-04] MEDS: ZINC SULFATE 220 MG CAP PO SCH (09:21)
[2021-08-04] MEDS: DEXAMETHASONE SOD PHOS 10 MG/1 ML VIAL IV SCH (09:21)
[2021-08-04] MEDS: ASCORBIC ACID 500 MG TAB PO SCH ×2 (09:21→17:04)
[2021-08-04] MEDS: DEXMEDETOMIDINE 100 ML IV PRN (22:02)
[2021-08-05] VITALS (25 sets, daily range): BP systolic 102–169; BP diastolic 72–112
[2021-08-05] MEDS: ONDANSETRON HCL INJ 2MG/ML 2ML 2 MG/ML VIAL IV PRN ×2 (00:06→16:02)
[2021-08-05] MEDS: GUAIFENESIN/CODEINE 5 ML LIQD PO PRN ×4 (03:13→18:44)
[2021-08-05] MEDS: Morphine 2mg Syringe 2 MG/ML SYR IV PRN ×3 (03:37→14:08)
[2021-08-05 05:01] LABS: BASOPHILS % 0.1 % (0.0-1.0); EOSINOPHILS # (AUTO) 0.1 (0.0-0.4); EOSINOPHILS % 0.5 % (0.0-6.0); HEMATOCRIT 48.7 % (38.2-49.6); LYMPHOCYTES # (AUTO) 0.5 (1.0-3.2); LYMPHOCYTES % 3.9 % (18.0-39.1); MEAN CORPUSCULAR HEMOGLOBIN 31.9 pg (28-32); MEAN CORPUSCULAR HGB CONC 32.9 g/dL (31-35); MEAN CORPUSCULAR VOLUME 97.2 fL (81-99); MONOCYTES # (AUTO) 0.4 (0.2-0.8); MONOCYTES % 2.8 % (4.4-11.3); NEUTROPHILS # (AUTO) 12.6 (2.1-6.9); NEUTROPHILS % 92.3 % (38.7-80.0); PLATELET COUNT 210 x10e3/uL (140-360); RED BLOOD COUNT 5.01 x10e6/uL (4.3-5.7)
[2021-08-05 05:35] LABS: ALBUMIN 2.6 g/dL (3.5-5.0); ALBUMIN/GLOBULIN RATIO 0.5 (0.8-2.0); ANION GAP 20.3 mmol/L (8-16); CREATININE, SERUM 0.72 mg/dL (0.72-1.25); POTASSIUM 4.3 mmol/L (3.5-5.1)
[2021-08-05] MEDS: ACETAMINOPHEN 325 MG TAB PO PRN ×2 (06:18→16:24)
[2021-08-05] MEDS: IBUPROFEN 400 MG TAB PO PRN ×2 (06:22→18:46)
[2021-08-05] MEDS: ASCORBIC ACID 500 MG TAB PO SCH ×2 (08:13→16:02)
[2021-08-05] MEDS: ZINC SULFATE 220 MG CAP PO SCH (08:13)
[2021-08-05] MEDS: BENZONATATE 100 MG CAP PO PRN ×2 (08:13→22:42)
[2021-08-05] MEDS: ENOXAPARIN SOD INJ 40 MG/0.4 ML SYR SC SCH ×2 (08:13→20:02)
[2021-08-05] MEDS: DEXAMETHASONE SOD PHOS 10 MG/1 ML VIAL IV SCH (08:16)
[2021-08-05] MEDS: DEXMEDETOMIDINE 100 ML IV PRN ×2 (09:52→21:08)
[2021-08-05] MEDS: LOPERAMIDE HCL 2 MG CAP PO PRN (22:42)
[2021-08-06] VITALS (26 sets, daily range): BP systolic 74–155; BP diastolic 57–111
[2021-08-06] MEDS: GUAIFENESIN/CODEINE 5 ML LIQD PO PRN ×2 (00:30→04:43)
[2021-08-06 04:55] LABS: BASOPHILS % 0.3 % (0.0-1.0); EOSINOPHILS % 0.1 % (0.0-6.0); HEMATOCRIT 52.9 % (38.2-49.6); HEMOGLOBIN 16.8 g/dL (14.0-18.0); LYMPHOCYTES # (AUTO) 0.7 (1.0-3.2); LYMPHOCYTES % 4.4 % (18.0-39.1); MEAN CORPUSCULAR HEMOGLOBIN 32.1 pg (28-32); MEAN CORPUSCULAR HGB CONC 31.8 g/dL (31-35); MEAN CORPUSCULAR VOLUME 101.1 fL (81-99); MONOCYTES # (AUTO) 0.4 (0.2-0.8); MONOCYTES % 2.6 % (4.4-11.3); NEUTROPHILS % 91.8 % (38.7-80.0); PLATELET COUNT 253 x10e3/uL (140-360); RED BLOOD COUNT 5.23 x10e6/uL (4.3-5.7); RED CELL DISTRIBUTION WIDTH 13.1 % (11.7-14.4)
[2021-08-06 05:32] LABS: ALBUMIN 2.6 g/dL (3.5-5.0); ALBUMIN/GLOBULIN RATIO 0.5 (0.8-2.0); ANION GAP 22.8 mmol/L (8-16); CALCIUM 8.9 mg/dL (8.4-10.2); CREATININE, SERUM 0.69 mg/dL (0.72-1.25); POTASSIUM 4.8 mmol/L (3.5-5.1)
[2021-08-06] MEDS: DEXMEDETOMIDINE 100 ML IV PRN (06:59)
[2021-08-06] MEDS: DEXAMETHASONE SOD PHOS 10 MG/1 ML VIAL IV SCH (08:19)
[2021-08-06] MEDS: ASCORBIC ACID 500 MG TAB PO SCH ×2 (08:19→16:48)
[2021-08-06] MEDS: ENOXAPARIN SOD INJ 40 MG/0.4 ML SYR SC SCH ×2 (08:19→20:41)
[2021-08-06] MEDS: ZINC SULFATE 220 MG CAP PO SCH (08:20)
[2021-08-06] MEDS ORDERED: IVERMECTIN 3MG TABLET 3 MG TABLET PO SCH (09:00)
[2021-08-06] MEDS: FENTANYL 2000MCG/NS 250 250 ML IV SCH ×3 (09:45→22:50)
[2021-08-06] MEDS: MIDAZOLAM HCL 5MG/ML 10ML VIAL 100 ML IV PRN ×3 (09:46→19:36)
[2021-08-06] MEDS: ROCURONIUM 1250MG/NS 250 250 ML IV PRN (09:47)
[2021-08-06] MEDS ORDERED: LACTATED RINGER'S 1,000 ML INJ ONE (10:00)
[2021-08-06] MEDS: PROPOFOL IV EMULSION 10MG/ML 100 ML IV SCH (10:54)
[2021-08-06] MEDS ORDERED: METOPROLOL TARTRATE INJ 1 MG/ML VIAL ONE (10:58)
[2021-08-06] MEDS ORDERED: AMIODARONE 900MG 500 ML IV ONE (11:00)
[2021-08-06] MEDS ORDERED: METOPROLOL TARTRATE INJ 1 MG/ML VIAL IV PRN (11:00)
[2021-08-06] MEDS ORDERED: AMIODARONE HCL 150 MG/100 ML BAG IV ONE (11:00)
[2021-08-06 11:48] LABS: ABG PH 7.24 (7.35-7.45)
[2021-08-06 11:49] LABS: ABG HCO3 28 mmol/L (22-26); ABG PCO2 67 mmHg (35-45); ABG PO2 51 mmHg (80-105); ABG TCO2 30
[2021-08-06] MEDS ORDERED: PHENYLEPHRINE 10MG/ML VIAL 40 MG in DEXTROSE 5% 250ML 250 ML IV SCH (12:45)
[2021-08-06] MEDS ORDERED: SODIUM CHLORIDE 0.9% 1000ML 1,000 ML ONE (14:21)
[2021-08-06 16:28] LABS: ALBUMIN 2.2 g/dL (3.5-5.0); ALBUMIN/GLOBULIN RATIO 0.6 (0.8-2.0); ANION GAP 15.6 mmol/L (8-16); CALCIUM 8.5 mg/dL (8.4-10.2); POTASSIUM 4.6 mmol/L (3.5-5.1)
[2021-08-06 16:32] LABS: CREATININE, SERUM 1.11 mg/dL (0.72-1.25)
[2021-08-06] MEDS: BARICITINIB 2 MG TABLET PO SCH (16:56)
[2021-08-06] MEDS: Vancomycin IV 1 GM in SODIUM CHLORIDE 0.9% 250ML 250 ML IV SCH (16:56)
[2021-08-06] MEDS: MEROPENEM 1 GM in SODIUM CHLORIDE 0.9% 100 ML IV SCH (22:06)
[2021-08-07] VITALS (22 sets, daily range): BP systolic 102–133; BP diastolic 69–99
[2021-08-07] MEDS: MIDAZOLAM HCL 5MG/ML 10ML VIAL 100 ML IV PRN ×4 (00:55→17:34)
[2021-08-07] MEDS: Vancomycin IV 1 GM in SODIUM CHLORIDE 0.9% 250ML 250 ML IV SCH ×2 (04:26→16:50)
[2021-08-07 05:54] LABS: BASOPHILS % 0.2 % (0.0-1.0); EOSINOPHILS % 0.2 % (0.0-6.0); HEMATOCRIT 42.1 % (38.2-49.6); HEMOGLOBIN 13.7 g/dL (14.0-18.0); LYMPHOCYTES # (AUTO) 0.8 (1.0-3.2); LYMPHOCYTES % 4.6 % (18.0-39.1); MEAN CORPUSCULAR HEMOGLOBIN 31.9 pg (28-32); MEAN CORPUSCULAR HGB CONC 32.5 g/dL (31-35); MEAN CORPUSCULAR VOLUME 97.9 fL (81-99); MONOCYTES # (AUTO) 0.8 (0.2-0.8); MONOCYTES % 4.3 % (4.4-11.3); NEUTROPHILS # (AUTO) 16.1 (2.1-6.9); NEUTROPHILS % 89.5 % (38.7-80.0); PLATELET COUNT 271 x10e3/uL (140-360); RED CELL DISTRIBUTION WIDTH 13.7 % (11.7-14.4)
[2021-08-07] MEDS: FENTANYL 2000MCG/NS 250 250 ML IV SCH ×3 (06:00→20:23)
[2021-08-07] MEDS: PROPOFOL IV EMULSION 10MG/ML 100 ML IV SCH ×2 (06:05→17:03)
[2021-08-07] MEDS: ROCURONIUM 1250MG/NS 250 250 ML IV PRN (06:10)
[2021-08-07 06:19] LABS: ALBUMIN/GLOBULIN RATIO 0.5 (0.8-2.0); ANION GAP 13.9 mmol/L (8-16); CALCIUM 7.7 mg/dL (8.4-10.2); CREATININE, SERUM 0.63 mg/dL (0.72-1.25); POTASSIUM 3.9 mmol/L (3.5-5.1)
[2021-08-07] MEDS: MEROPENEM 1 GM in SODIUM CHLORIDE 0.9% 100 ML IV SCH ×3 (06:22→22:09)
[2021-08-07 08:42] LABS: ABG PCO2 35 mmHg (35-45); ABG PH 7.45 (7.35-7.45)
[2021-08-07 08:43] LABS: ABG HCO3 25 mmol/L (22-26); ABG PO2 93 mmHg (80-105); ABG TCO2 26
[2021-08-07] MEDS: ENOXAPARIN SOD INJ 40 MG/0.4 ML SYR SC SCH ×2 (09:35→20:27)
[2021-08-07] MEDS: ASCORBIC ACID 500 MG TAB PO SCH ×2 (09:36→16:51)
[2021-08-07] MEDS: AMIODARONE HCL 200 MG TAB PO SCH ×2 (09:36→16:51)
[2021-08-07] MEDS: ZINC SULFATE 220 MG CAP PO SCH (09:36)
[2021-08-07] MEDS: BARICITINIB 2 MG TABLET PO SCH (09:38)
[2021-08-07] MEDS ORDERED: MIDAZOLAM HCL 5MG/ML 10ML VIAL 100 ML IV PRN (17:15)
[2021-08-07] MEDS ORDERED: FENTANYL 2000MCG/NS 250 250 ML IV SCH (17:15)
[2021-08-08] VITALS (20 sets, daily range): BP systolic 80–136; BP diastolic 47–99
[2021-08-08] MEDS: Vancomycin IV 1 GM in SODIUM CHLORIDE 0.9% 250ML 250 ML IV SCH ×2 (04:39→17:30)
[2021-08-08] MEDS: MEROPENEM 1 GM in SODIUM CHLORIDE 0.9% 100 ML IV SCH ×3 (05:55→21:40)
[2021-08-08 07:12] LABS: BASOPHILS % 0.1 % (0.0-1.0); EOSINOPHILS # (AUTO) 0.3 (0.0-0.4); EOSINOPHILS % 1.7 % (0.0-6.0); HEMATOCRIT 41.9 % (38.2-49.6); HEMOGLOBIN 13.5 g/dL (14.0-18.0); LYMPHOCYTES # (AUTO) 1.1 (1.0-3.2); LYMPHOCYTES % 7.1 % (18.0-39.1); MEAN CORPUSCULAR HEMOGLOBIN 31.6 pg (28-32); MEAN CORPUSCULAR HGB CONC 32.2 g/dL (31-35); MEAN CORPUSCULAR VOLUME 98.1 fL (81-99); MONOCYTES # (AUTO) 0.9 (0.2-0.8); MONOCYTES % 5.5 % (4.4-11.3); NEUTROPHILS # (AUTO) 13.2 (2.1-6.9); NEUTROPHILS % 84.1 % (38.7-80.0); PLATELET COUNT 279 x10e3/uL (140-360); RED BLOOD COUNT 4.27 x10e6/uL (4.3-5.7); RED CELL DISTRIBUTION WIDTH 14.2 % (11.7-14.4)
[2021-08-08 07:48] LABS: ALBUMIN 1.9 g/dL (3.5-5.0); ALBUMIN/GLOBULIN RATIO 0.5 (0.8-2.0); ANION GAP 13.6 mmol/L (8-16); CALCIUM 7.7 mg/dL (8.4-10.2); CREATININE, SERUM 0.6 mg/dL (0.72-1.25); POTASSIUM 3.6 mmol/L (3.5-5.1)
[2021-08-08 08:46] LABS: ABG HCO3 23 mmol/L (22-26); ABG PCO2 32 mmHg (35-45); ABG PH 7.47 (7.35-7.45); ABG PO2 69 mmHg (80-105); ABG TCO2 24
[2021-08-08] MEDS: FENTANYL 2000MCG/NS 250 250 ML IV SCH (08:50)
[2021-08-08] MEDS: PROPOFOL IV EMULSION 10MG/ML 100 ML IV SCH (08:51)
[2021-08-08] MEDS: MIDAZOLAM HCL 5MG/ML 10ML VIAL 100 ML IV PRN (08:52)
[2021-08-08] MEDS ORDERED: FUROSEMIDE INJ 10 MG/ML 4 ML VIAL IV ONE (09:15)
[2021-08-08] MEDS: DOCUSATE SODIUM LIQD 100 MG/10 ML UDC NG SCH (09:53)
[2021-08-08] MEDS: ASCORBIC ACID 500 MG TAB PO SCH ×2 (09:54→18:35)
[2021-08-08] MEDS: AMIODARONE HCL 200 MG TAB PO SCH ×2 (09:54→18:35)
[2021-08-08] MEDS: ZINC SULFATE 220 MG CAP PO SCH (09:54)
[2021-08-08] MEDS: BARICITINIB 2 MG TABLET PO SCH (09:54)
[2021-08-08] MEDS ORDERED: POTASSIUM CHLORIDE 20MEQ/100ML 200 ML IV ONE (10:00)
[2021-08-08] MEDS: PROPOFOL IV EMULSION 50 ML IV SCH (12:22)
[2021-08-08] MEDS: ALBUMIN 25% 12.5GM 0.25 GM/ML BTL IV SCH ×2 (12:25→18:35)
[2021-08-08 13:09] LABS: ABG HCO3 24 mmol/L (22-26); ABG PCO2 39 mmHg (35-45); ABG PO2 85 mmHg (80-105)
[2021-08-08 13:10] LABS: ABG TCO2 25
[2021-08-08] MEDS ORDERED: MICAFUNGIN SODIUM 100 MG in MICAFUNGIN SODIUM 100 ML IV SCH (15:00)
[2021-08-08 19:47] LABS: ABG HCO3 25 mmol/L (22-26); ABG PCO2 45 mmHg (35-45); ABG PH 7.35 (7.35-7.45); ABG PO2 77 mmHg (80-105); ABG TCO2 26
[2021-08-08] MEDS ORDERED: VECURONIUM BROMIDE FOR INJ 20 MG VIAL ONE (20:55)
[2021-08-08] MEDS ORDERED: AMIODARONE 900MG 500 ML IV ONE (20:59)
[2021-08-08] MEDS ORDERED: AMIODARONE 900MG 500 ML IV PRN (21:00)
[2021-08-08 21:05] LABS: ABG HCO3 24 mmol/L (22-26); ABG PCO2 58 mmHg (35-45); ABG PH 7.23 (7.35-7.45); ABG PO2 61 mmHg (80-105); ABG TCO2 26
[2021-08-08] MEDS: ENOXAPARIN SOD INJ 40 MG/0.4 ML SYR SC SCH (21:39)
[2021-08-09] VITALS (25 sets, daily range): BP systolic 83–132; BP diastolic 54–91
[2021-08-09 03:11] LABS: ABG HCO3 22 mmol/L (22-26); ABG PCO2 43 mmHg (35-45); ABG PH 7.32 (7.35-7.45); ABG PO2 104 mmHg (80-105); ABG TCO2 23
[2021-08-09] MEDS: Vancomycin IV 1 GM in SODIUM CHLORIDE 0.9% 250ML 250 ML IV SCH ×2 (05:05→17:30)
[2021-08-09] MEDS: MEROPENEM 1 GM in SODIUM CHLORIDE 0.9% 100 ML IV SCH ×3 (06:18→22:39)
[2021-08-09 06:27] LABS: BASOPHILS # (AUTO) 0.1 (0.0-0.1); BASOPHILS % 0.3 % (0.0-1.0); EOSINOPHILS # (AUTO) 0.2 (0.0-0.4); EOSINOPHILS % 0.9 % (0.0-6.0); HEMATOCRIT 42.6 % (38.2-49.6); HEMOGLOBIN 13.5 g/dL (14.0-18.0); LYMPHOCYTES # (AUTO) 1.5 (1.0-3.2); LYMPHOCYTES % 8.7 % (18.0-39.1); MEAN CORPUSCULAR HEMOGLOBIN 31.9 pg (28-32); MEAN CORPUSCULAR HGB CONC 31.7 g/dL (31-35); MEAN CORPUSCULAR VOLUME 100.7 fL (81-99); MONOCYTES # (AUTO) 1.1 (0.2-0.8); MONOCYTES % 6.3 % (4.4-11.3); NEUTROPHILS # (AUTO) 13.6 (2.1-6.9); NEUTROPHILS % 80.2 % (38.7-80.0); PLATELET COUNT 327 x10e3/uL (140-360); RED BLOOD COUNT 4.23 x10e6/uL (4.3-5.7); RED CELL DISTRIBUTION WIDTH 14.5 % (11.7-14.4)
[2021-08-09 06:54] LABS: ALBUMIN 2.6 g/dL (3.5-5.0); ALBUMIN/GLOBULIN RATIO 0.7 (0.8-2.0); ANION GAP 18.2 mmol/L (8-16); CALCIUM 7.8 mg/dL (8.4-10.2); CREATININE, SERUM 0.99 mg/dL (0.72-1.25); POTASSIUM 4.2 mmol/L (3.5-5.1)
[2021-08-09] MEDS: ENOXAPARIN SOD INJ 40 MG/0.4 ML SYR SC SCH (08:21)
[2021-08-09] MEDS: ZINC SULFATE 220 MG CAP PO SCH (08:22)
[2021-08-09] MEDS: BARICITINIB 2 MG TABLET PO SCH (08:22)
[2021-08-09] MEDS: DOCUSATE SODIUM LIQD 100 MG/10 ML UDC NG SCH (08:22)
[2021-08-09] MEDS: PROPOFOL IV EMULSION 50 ML IV SCH (08:22)
[2021-08-09] MEDS: ASCORBIC ACID 500 MG TAB PO SCH ×2 (08:22→18:22)
[2021-08-09] MEDS: FENTANYL 2000MCG/NS 250 250 ML IV SCH ×2 (08:25→18:23)
[2021-08-09] MEDS: MIDAZOLAM HCL 5MG/ML 10ML VIAL 100 ML IV PRN ×3 (08:27→18:25)
[2021-08-09] MEDS ORDERED: ALBUMIN 25% 25GM 100ML 0.25 GM/ML BTL IV SCH (09:00)
[2021-08-09] MEDS: ALBUMIN 25% 25GM 100ML 100 ML IV SCH ×2 (10:00→18:22)
[2021-08-09] MEDS: FUROSEMIDE INJ 10 MG/ML 4 ML VIAL IV SCH ×2 (10:00→22:39)
[2021-08-09] MEDS: FLUCONAZOLE 200 MG/100 ML 100 ML IV SCH (15:00)
[2021-08-09] MEDS: PROPOFOL IV EMULSION 10MG/ML 100 ML IV SCH ×2 (18:20→18:26)
[2021-08-09] MEDS: ENOXAPARIN SOD INJ 120 MG/0.8 ML SYR SC SCH (20:28)
[2021-08-10] VITALS (28 sets, daily range): BP systolic 86–123; BP diastolic 58–95
[2021-08-10] MEDS ORDERED: LINEZOLID 600 MG/D5W 300ML 300 ML IV ONE (00:27)
[2021-08-10] MEDS: ALBUMIN 25% 25GM 100ML 100 ML IV SCH (01:55)
[2021-08-10] MEDS: Vancomycin IV 1 GM in SODIUM CHLORIDE 0.9% 250ML 250 ML IV SCH ×2 (05:31→15:57)
[2021-08-10] MEDS: MEROPENEM 1 GM in SODIUM CHLORIDE 0.9% 100 ML IV SCH ×3 (06:12→21:44)
[2021-08-10 06:22] LABS: BASOPHILS # (AUTO) 0.1 (0.0-0.1); BASOPHILS % 0.3 % (0.0-1.0); EOSINOPHILS # (AUTO) 0.3 (0.0-0.4); EOSINOPHILS % 1.9 % (0.0-6.0); HEMATOCRIT 40.3 % (38.2-49.6); HEMOGLOBIN 12.6 g/dL (14.0-18.0); LYMPHOCYTES # (AUTO) 2.1 (1.0-3.2); LYMPHOCYTES % 14.1 % (18.0-39.1); MEAN CORPUSCULAR HEMOGLOBIN 31.7 pg (28-32); MEAN CORPUSCULAR HGB CONC 31.3 g/dL (31-35); MEAN CORPUSCULAR VOLUME 101.3 fL (81-99); MONOCYTES # (AUTO) 0.7 (0.2-0.8); MONOCYTES % 4.6 % (4.4-11.3); NEUTROPHILS % 76.2 % (38.7-80.0); PLATELET COUNT 313 x10e3/uL (140-360); RED BLOOD COUNT 3.98 x10e6/uL (4.3-5.7); RED CELL DISTRIBUTION WIDTH 14.6 % (11.7-14.4)
[2021-08-10 06:50] LABS: ALBUMIN 3.1 g/dL (3.5-5.0); ANION GAP 13.6 mmol/L (8-16); CALCIUM 7.8 mg/dL (8.4-10.2); CREATININE, SERUM 0.68 mg/dL (0.72-1.25); POTASSIUM 3.6 mmol/L (3.5-5.1)
[2021-08-10 08:51] LABS: ABG PH 7.53 (7.35-7.45)
[2021-08-10 08:52] LABS: ABG HCO3 26 mmol/L (22-26); ABG PCO2 46 mmHg (35-45); ABG PO2 70 mmHg (80-105); ABG TCO2 27
[2021-08-10] MEDS: FENTANYL 2000MCG/NS 250 250 ML IV SCH ×2 (09:00→16:29)
[2021-08-10] MEDS: MIDAZOLAM HCL 5MG/ML 10ML VIAL 100 ML IV PRN ×2 (09:00→16:30)
[2021-08-10] MEDS: ENOXAPARIN SOD INJ 120 MG/0.8 ML SYR SC SCH ×2 (11:22→21:44)
[2021-08-10] MEDS: ASCORBIC ACID 500 MG TAB PO SCH ×2 (11:23→15:57)
[2021-08-10] MEDS: ZINC SULFATE 220 MG CAP PO SCH (11:23)
[2021-08-10] MEDS: DOCUSATE SODIUM LIQD 100 MG/10 ML UDC NG SCH (11:23)
[2021-08-10] MEDS: BARICITINIB 2 MG TABLET PO SCH (11:23)
[2021-08-10] MEDS: PROPOFOL IV EMULSION 10MG/ML 100 ML IV SCH ×3 (12:25→18:08)
[2021-08-10] MEDS: FLUCONAZOLE 200 MG/100 ML 100 ML IV SCH (15:16)
[2021-08-11] VITALS (29 sets, daily range): BP systolic 90–121; BP diastolic 57–88
[2021-08-11] MEDS: Vancomycin IV 1 GM in SODIUM CHLORIDE 0.9% 250ML 250 ML IV SCH ×2 (05:02→16:28)
[2021-08-11 05:11] LABS: ABG HCO3 22 mmol/L (22-26); ABG PCO2 45 mmHg (35-45); ABG PH 7.29 (7.35-7.45); ABG PO2 61 mmHg (80-105); ABG TCO2 23
[2021-08-11] MEDS: MEROPENEM 1 GM in SODIUM CHLORIDE 0.9% 100 ML IV SCH ×3 (05:39→22:09)
[2021-08-11 06:00] LABS: BASOPHILS # (AUTO) 0.1 (0.0-0.1); BASOPHILS % 0.6 % (0.0-1.0); EOSINOPHILS # (AUTO) 0.3 (0.0-0.4); EOSINOPHILS % 1.9 % (0.0-6.0); HEMATOCRIT 43.9 % (38.2-49.6); HEMOGLOBIN 13.6 g/dL (14.0-18.0); LYMPHOCYTES # (AUTO) 2.7 (1.0-3.2); LYMPHOCYTES % 14.5 % (18.0-39.1); MEAN CORPUSCULAR HEMOGLOBIN 31.6 pg (28-32); MEAN CORPUSCULAR VOLUME 101.9 fL (81-99); MONOCYTES # (AUTO) 0.8 (0.2-0.8); MONOCYTES % 4.4 % (4.4-11.3); NEUTROPHILS # (AUTO) 13.2 (2.1-6.9); NEUTROPHILS % 72.5 % (38.7-80.0); PLATELET COUNT 400 x10e3/uL (140-360); RED BLOOD COUNT 4.31 x10e6/uL (4.3-5.7); RED CELL DISTRIBUTION WIDTH 14.9 % (11.7-14.4)
[2021-08-11 06:39] LABS: ALBUMIN 2.6 g/dL (3.5-5.0); ALBUMIN/GLOBULIN RATIO 0.7 (0.8-2.0); ANION GAP 16.1 mmol/L (8-16); CREATININE, SERUM 0.74 mg/dL (0.72-1.25); POTASSIUM 4.1 mmol/L (3.5-5.1)
[2021-08-11 09:07] LABS: ABG HCO3 24 mmol/L (22-26); ABG PCO2 56 mmHg (35-45); ABG PH 7.25 (7.35-7.45); ABG PO2 61 mmHg (80-105); ABG TCO2 26
[2021-08-11] MEDS: ASCORBIC ACID 500 MG TAB PO SCH ×2 (10:03→16:44)
[2021-08-11] MEDS: BARICITINIB 2 MG TABLET PO SCH (10:03)
[2021-08-11] MEDS: ZINC SULFATE 220 MG CAP PO SCH (10:03)
[2021-08-11] MEDS: ENOXAPARIN SOD INJ 120 MG/0.8 ML SYR SC SCH ×2 (10:03→22:08)
[2021-08-11] MEDS ORDERED: FUROSEMIDE INJ 10 MG/ML 4 ML VIAL IV SCH (10:15)
[2021-08-11] MEDS: DOCUSATE SODIUM LIQD 100 MG/10 ML UDC NG SCH (10:24)
[2021-08-11] MEDS: ALBUMIN 25% 12.5GM 0.25 GM/ML BTL IV SCH ×2 (10:24→18:01)
[2021-08-11] MEDS: MICAFUNGIN SODIUM 100 ML IV SCH (11:10)
[2021-08-11] MEDS: FENTANYL 2000MCG/NS 250 250 ML IV SCH (12:39)
[2021-08-11] MEDS ORDERED: MIDAZOLAM HCL 2 MG/2 ML VIAL ONE (14:22)
[2021-08-11] MEDS ORDERED: ETOMIDATE 2 MG/ML 10 ML INJ IV ONE (14:22)
[2021-08-11] MEDS ORDERED: WATER STERILE 10 ML VIAL ONE (14:22)
[2021-08-11] MEDS ORDERED: VECURONIUM BROMIDE FOR INJ 20 MG VIAL ONE (14:22)
[2021-08-11] MEDS ORDERED: SUCCINYLCHOLINE CHLORIDE 20 MG/ML 10ML VIAL ONE (14:22)
[2021-08-11] MEDS: FUROSEMIDE INJ 100 MG in SODIUM CHLORIDE 0.9% 100 ML 90 ML IV SCH (16:28)
[2021-08-12] VITALS (20 sets, daily range): BP systolic 91–138; BP diastolic 43–107
[2021-08-12] MEDS: ALBUMIN 25% 12.5GM 0.25 GM/ML BTL IV SCH (02:25)
[2021-08-12] MEDS: Vancomycin IV 1 GM in SODIUM CHLORIDE 0.9% 250ML 250 ML IV SCH ×2 (04:24→15:47)
[2021-08-12] MEDS: MEROPENEM 1 GM in SODIUM CHLORIDE 0.9% 100 ML IV SCH ×3 (06:35→23:47)
[2021-08-12 06:43] LABS: BASOPHILS # (AUTO) 0.1 (0.0-0.1); BASOPHILS % 0.8 % (0.0-1.0); EOSINOPHILS # (AUTO) 0.4 (0.0-0.4); EOSINOPHILS % 2.5 % (0.0-6.0); HEMOGLOBIN 12.6 g/dL (14.0-18.0); LYMPHOCYTES # (AUTO) 1.8 (1.0-3.2); LYMPHOCYTES % 10.9 % (18.0-39.1); MEAN CORPUSCULAR HEMOGLOBIN 31.4 pg (28-32); MEAN CORPUSCULAR HGB CONC 30.7 g/dL (31-35); MEAN CORPUSCULAR VOLUME 102.2 fL (81-99); MONOCYTES # (AUTO) 0.8 (0.2-0.8); MONOCYTES % 4.6 % (4.4-11.3); NEUTROPHILS # (AUTO) 12.3 (2.1-6.9); PLATELET COUNT 348 x10e3/uL (140-360); RED BLOOD COUNT 4.01 x10e6/uL (4.3-5.7); RED CELL DISTRIBUTION WIDTH 15.1 % (11.7-14.4)
[2021-08-12 07:05] LABS: ALBUMIN 3.4 g/dL (3.5-5.0); ANION GAP 15.2 mmol/L (8-16); CALCIUM 8.2 mg/dL (8.4-10.2); CREATININE, SERUM 0.83 mg/dL (0.72-1.25); MAGNESIUM 1.8 MG/DL (1.3-2.1); POTASSIUM 4.2 mmol/L (3.5-5.1)
[2021-08-12 07:28] LABS: THYROID STIMULATING HORMONE 1.875 uIU/mL (0.350-4.940)
[2021-08-12 09:07] LABS: ABG HCO3 25 mmol/L (22-26); ABG PCO2 46 mmHg (35-45); ABG PH 7.34 (7.35-7.45); ABG PO2 79 mmHg (80-105); ABG TCO2 26
[2021-08-12] MEDS: ASCORBIC ACID 500 MG TAB PO SCH ×2 (10:28→16:49)
[2021-08-12] MEDS: ENOXAPARIN SOD INJ 120 MG/0.8 ML SYR SC SCH ×2 (10:28→20:44)
[2021-08-12] MEDS: DOCUSATE SODIUM LIQD 100 MG/10 ML UDC NG SCH (10:28)
[2021-08-12] MEDS: ZINC SULFATE 220 MG CAP PO SCH (10:28)
[2021-08-12] MEDS: MICAFUNGIN SODIUM 100 ML IV SCH (10:38)
[2021-08-12] MEDS: PROPOFOL IV EMULSION 10MG/ML 100 ML IV SCH (12:52)
[2021-08-12] MEDS: FUROSEMIDE INJ 100 MG in SODIUM CHLORIDE 0.9% 100 ML 90 ML IV SCH (18:25)
[2021-08-12] MEDS: FENTANYL 2000MCG/NS 250 250 ML IV SCH (20:44)
[2021-08-13] VITALS (20 sets, daily range): BP systolic 70–105; BP diastolic 55–74
[2021-08-13] MEDS: Vancomycin IV 1 GM in SODIUM CHLORIDE 0.9% 250ML 250 ML IV SCH (04:42)
[2021-08-13] MEDS: MEROPENEM 1 GM in SODIUM CHLORIDE 0.9% 100 ML IV SCH ×2 (06:01→14:54)
[2021-08-13 06:25] LABS: BASOPHILS # (AUTO) 0.1 (0.0-0.1); BASOPHILS % 0.6 % (0.0-1.0); EOSINOPHILS % 0.1 % (0.0-6.0); HEMATOCRIT 44.4 % (38.2-49.6); HEMOGLOBIN 13.3 g/dL (14.0-18.0); LYMPHOCYTES # (AUTO) 1.2 (1.0-3.2); LYMPHOCYTES % 5.3 % (18.0-39.1); MONOCYTES # (AUTO) 1.3 (0.2-0.8); MONOCYTES % 5.8 % (4.4-11.3); NEUTROPHILS % 80.5 % (38.7-80.0); PLATELET COUNT 426 x10e3/uL (140-360); RED BLOOD COUNT 4.15 x10e6/uL (4.3-5.7); RED CELL DISTRIBUTION WIDTH 15.9 % (11.7-14.4)
[2021-08-13 06:44] LABS: ALBUMIN 3.1 g/dL (3.5-5.0); ALBUMIN/GLOBULIN RATIO 0.8 (0.8-2.0); CALCIUM 8.3 mg/dL (8.4-10.2); CREATININE, SERUM 1.37 mg/dL (0.72-1.25)
[2021-08-13] MEDS ORDERED: CALCIUM CHLORIDE 13.6 MEQ in SODIUM CHLORIDE 0.9% 100 ML 100 ML IV ONE (08:13)
[2021-08-13] MEDS ORDERED: INSULIN REGULAR, HUMAN 100 UNIT/1 ML IV ONE (08:13)
[2021-08-13] MEDS ORDERED: SOD POLYSTYRENE SULFONATE SUSP 15 GM/60 ML BTL PO ONE (08:13)
[2021-08-13] MEDS ORDERED: DEXTROSE 50% SYRINGE 50 ML IV ONE (08:13)
[2021-08-13 08:36] LABS: ABG PCO2 50 mmHg (35-45); ABG PH 7.19 (7.35-7.45); ABG PO2 58 mmHg (80-105)
[2021-08-13 08:37] LABS: ABG HCO3 19 mmol/L (22-26); ABG TCO2 21
[2021-08-13] MEDS: FUROSEMIDE INJ 100 MG in SODIUM CHLORIDE 0.9% 100 ML 90 ML IV SCH (12:21)
[2021-08-13] MEDS: MICAFUNGIN SODIUM 100 ML IV SCH (12:21)
[2021-08-13] MEDS ORDERED: ALBUMIN 25% 12.5GM 0.25 GM/ML BTL IV ONE (12:22)
[2021-08-13] MEDS: DOCUSATE SODIUM LIQD 100 MG/10 ML UDC NG SCH (13:01)
[2021-08-13] MEDS: ASCORBIC ACID 500 MG TAB PO SCH ×2 (13:01→17:06)
[2021-08-13] MEDS: ZINC SULFATE 220 MG CAP PO SCH (13:01)
[2021-08-13] MEDS ORDERED: SODIUM BICARBONATE 8.4% SYRING 100 ML ONE (14:00)
[2021-08-13] MEDS: SODIUM BICARBONATE 8.4% 150 ML in DEXTROSE 5% 1,000 ML IV SCH (15:59)
[2021-08-13] MEDS ORDERED: VASOPRESSIN 60 UNIT in DEXTROSE 5% 50ML 57 ML IV PRN (16:00)
[2021-08-13] MEDS ORDERED: SODIUM CHLORIDE 0.9% 1000ML 1,000 ML ONE (16:47)
[2021-08-13] MEDS: PROPOFOL IV EMULSION 10MG/ML 100 ML IV SCH ×2 (17:06→21:16)
[2021-08-13 17:16] LABS: ABG HCO3 17 mmol/L (22-26); ABG PCO2 74 mmHg (35-45); ABG PH 6.96 (7.35-7.45); ABG PO2 70 mmHg (80-105); ABG TCO2 19
[2021-08-13] MEDS ORDERED: HEPARIN SOD (PORCINE) 1000 UNIT/ML SDV ONE (18:58)
[2021-08-13] MEDS: FENTANYL 2000MCG/NS 250 250 ML IV SCH (19:28)
[2021-08-13] MEDS: NOREPINEPHRINE 8 MG/D5W 250 ML 250 ML IV PRN (20:31)
[2021-08-13] MEDS: MIDAZOLAM HCL 5MG/ML 10ML VIAL 100 ML IV PRN (21:16)
[2021-08-14] VITALS (25 sets, daily range): BP systolic 101–147; BP diastolic 63–92
[2021-08-14] MEDS: MEROPENEM 1 GM in SODIUM CHLORIDE 0.9% 100 ML IV SCH ×4 (02:23→14:17)
[2021-08-14] MEDS: FENTANYL 2000MCG/NS 250 250 ML IV SCH ×3 (02:23→15:28)
[2021-08-14] MEDS: PROPOFOL IV EMULSION 10MG/ML 100 ML IV SCH ×2 (02:24→14:10)
[2021-08-14] MEDS: MIDAZOLAM HCL 5MG/ML 10ML VIAL 100 ML IV PRN ×4 (02:24→23:26)
[2021-08-14] MEDS: SODIUM BICARBONATE 8.4% 150 ML in DEXTROSE 5% 1,000 ML IV SCH ×2 (02:38→13:23)
[2021-08-14] MEDS: ENOXAPARIN SOD INJ 40 MG/0.4 ML SYR SC SCH (05:40)
[2021-08-14] MEDS ORDERED: ENOXAPARIN SOD INJ 120 MG/0.8 ML SYR SC SCH (06:00)
[2021-08-14] MEDS ORDERED: Vancomycin IV 1 GM in SODIUM CHLORIDE 0.9% 250ML 250 ML IV SCH (06:00)
[2021-08-14 06:32] LABS: BASOPHILS # (AUTO) 0.1 (0.0-0.1); BASOPHILS % 0.2 % (0.0-1.0); EOSINOPHILS # (AUTO) 0.1 (0.0-0.4); EOSINOPHILS % 0.5 % (0.0-6.0); HEMATOCRIT 42.1 % (38.2-49.6); HEMOGLOBIN 12.8 g/dL (14.0-18.0); LYMPHOCYTES # (AUTO) 1.8 (1.0-3.2); LYMPHOCYTES % 6.6 % (18.0-39.1); MEAN CORPUSCULAR HEMOGLOBIN 31.9 pg (28-32); MEAN CORPUSCULAR HGB CONC 30.4 g/dL (31-35); MONOCYTES # (AUTO) 1.6 (0.2-0.8); MONOCYTES % 5.7 % (4.4-11.3); NEUTROPHILS # (AUTO) 21.6 (2.1-6.9); NEUTROPHILS % 78.2 % (38.7-80.0); PLATELET COUNT 430 x10e3/uL (140-360); RED BLOOD COUNT 4.01 x10e6/uL (4.3-5.7); RED CELL DISTRIBUTION WIDTH 15.9 % (11.7-14.4)
[2021-08-14 07:00] LABS: ALBUMIN 2.9 g/dL (3.5-5.0); ALBUMIN/GLOBULIN RATIO 0.9 (0.8-2.0); ANION GAP 18.6 mmol/L (8-16); CALCIUM 8.2 mg/dL (8.4-10.2); CREATININE, SERUM 1.71 mg/dL (0.72-1.25); POTASSIUM 4.6 mmol/L (3.5-5.1)
[2021-08-14] MEDS: ROCURONIUM 1250MG/NS 250 250 ML IV PRN (08:57)
[2021-08-14 09:26] LABS: ABG HCO3 30 mmol/L (22-26); ABG PCO2 67 mmHg (35-45); ABG PH 7.26 (7.35-7.45); ABG PO2 61 mmHg (80-105); ABG TCO2 32
[2021-08-14] MEDS: ASCORBIC ACID 500 MG TAB PO SCH ×2 (09:38→16:49)
[2021-08-14] MEDS: ZINC SULFATE 220 MG CAP PO SCH (09:38)
[2021-08-14] MEDS: DOCUSATE SODIUM LIQD 100 MG/10 ML UDC NG SCH ×2 (09:38→21:10)
[2021-08-14] MEDS ORDERED: HEPARIN SOD (PORCINE) 1000 UNIT/ML SDV ONE (12:39)
[2021-08-14] MEDS: MICAFUNGIN SODIUM 100 ML IV SCH (13:23)
[2021-08-14] MEDS ORDERED: HEPARIN SOD (PORCINE) 1000 UNIT/ML 10ML MDV IV PRN (13:45)
[2021-08-14] MEDS: SODIUM CHLORIDE 0.9% 1000ML 1,000 ML IV SCH (15:29)
[2021-08-14] MEDS ORDERED: HEPARIN SOD (PORCINE) 1000 UNIT/ML SDV IV PRN (15:45)
[2021-08-14] MEDS: NOREPINEPHRINE 8 MG/D5W 250 ML 250 ML IV PRN (20:36)
[2021-08-14] MEDS: ACETAMINOPHEN 325 MG TAB PO PRN (21:10)
[2021-08-15] VITALS (26 sets, daily range): BP systolic 89–138; BP diastolic 60–77
[2021-08-15] MEDS: NOREPINEPHRINE 8 MG/D5W 250 ML 250 ML IV PRN ×7 (01:19→20:28)
[2021-08-15] MEDS: MIDAZOLAM HCL 5MG/ML 10ML VIAL 100 ML IV PRN ×5 (05:07→22:19)
[2021-08-15] MEDS: ENOXAPARIN SOD INJ 40 MG/0.4 ML SYR SC SCH (05:49)
[2021-08-15] MEDS: FENTANYL 2000MCG/NS 250 250 ML IV SCH ×3 (06:17→19:05)
[2021-08-15 06:49] LABS: BASOPHILS # (AUTO) 0.1 (0.0-0.1); BASOPHILS % 0.6 % (0.0-1.0); EOSINOPHILS # (AUTO) 0.3 (0.0-0.4); EOSINOPHILS % 1.5 % (0.0-6.0); HEMATOCRIT 41.4 % (38.2-49.6); HEMOGLOBIN 12.6 g/dL (14.0-18.0); LYMPHOCYTES # (AUTO) 0.8 (1.0-3.2); LYMPHOCYTES % 3.8 % (18.0-39.1); MEAN CORPUSCULAR HEMOGLOBIN 31.4 pg (28-32); MEAN CORPUSCULAR HGB CONC 30.4 g/dL (31-35); MEAN CORPUSCULAR VOLUME 103.2 fL (81-99); MONOCYTES # (AUTO) 1.1 (0.2-0.8); MONOCYTES % 5.1 % (4.4-11.3); NEUTROPHILS # (AUTO) 17.3 (2.1-6.9); NEUTROPHILS % 84.5 % (38.7-80.0); PLATELET COUNT 333 x10e3/uL (140-360); RED BLOOD COUNT 4.01 x10e6/uL (4.3-5.7); RED CELL DISTRIBUTION WIDTH 15.9 % (11.7-14.4)
[2021-08-15 07:13] LABS: ALBUMIN 2.5 g/dL (3.5-5.0); ALBUMIN/GLOBULIN RATIO 0.8 (0.8-2.0); ANION GAP 16.5 mmol/L (8-16); CALCIUM 8.1 mg/dL (8.4-10.2); CREATININE, SERUM 1.34 mg/dL (0.72-1.25); POTASSIUM 4.5 mmol/L (3.5-5.1)
[2021-08-15] MEDS: PROPOFOL IV EMULSION 10MG/ML 100 ML IV SCH ×2 (08:00→22:18)
[2021-08-15] MEDS: DOCUSATE SODIUM LIQD 100 MG/10 ML UDC NG SCH ×2 (08:47→18:45)
[2021-08-15] MEDS: ASCORBIC ACID 500 MG TAB PO SCH ×2 (08:47→18:45)
[2021-08-15] MEDS: ZINC SULFATE 220 MG CAP PO SCH (08:47)
[2021-08-15 08:53] LABS: ABG PCO2 52 mmHg (35-45); ABG PH 7.34 (7.35-7.45); ABG PO2 78 mmHg (80-105)
[2021-08-15 08:54] LABS: ABG HCO3 28 mmol/L (22-26); ABG TCO2 29
[2021-08-15] MEDS: MICAFUNGIN SODIUM 100 ML IV SCH (12:00)
[2021-08-15] MEDS: LINEZOLID 600 MG/D5W 300ML 300 ML IV SCH ×2 (12:30→20:53)
[2021-08-15] MEDS: SODIUM CHLORIDE 0.9% 1000ML 1,000 ML IV SCH (14:45)
[2021-08-15] MEDS: MEROPENEM 1 GM in SODIUM CHLORIDE 0.9% 100 ML IV SCH (18:45)
[2021-08-15] MEDS: ACETAMINOPHEN 325 MG TAB PO PRN (20:54)
[2021-08-16] VITALS (25 sets, daily range): BP systolic 82–123; BP diastolic 47–87
[2021-08-16] MEDS: MIDAZOLAM HCL 5MG/ML 10ML VIAL 100 ML IV PRN ×3 (03:01→19:20)
[2021-08-16] MEDS: ROCURONIUM 1250MG/NS 250 250 ML IV PRN ×2 (03:14→23:20)
[2021-08-16] MEDS: FENTANYL 2000MCG/NS 250 250 ML IV SCH ×3 (03:15→13:00)
[2021-08-16] MEDS: PROPOFOL IV EMULSION 10MG/ML 100 ML IV SCH ×4 (03:34→19:35)
[2021-08-16] MEDS: ENOXAPARIN SOD INJ 40 MG/0.4 ML SYR SC SCH (06:31)
[2021-08-16 06:35] LABS: BASOPHILS # (AUTO) 0.1 (0.0-0.1); BASOPHILS % 0.6 % (0.0-1.0); EOSINOPHILS # (AUTO) 0.3 (0.0-0.4); EOSINOPHILS % 1.5 % (0.0-6.0); HEMATOCRIT 39.2 % (38.2-49.6); HEMOGLOBIN 11.8 g/dL (14.0-18.0); LYMPHOCYTES # (AUTO) 0.7 (1.0-3.2); LYMPHOCYTES % 4.1 % (18.0-39.1); MEAN CORPUSCULAR HEMOGLOBIN 31.3 pg (28-32); MEAN CORPUSCULAR HGB CONC 30.1 g/dL (31-35); MONOCYTES # (AUTO) 0.7 (0.2-0.8); NEUTROPHILS # (AUTO) 15.1 (2.1-6.9); NEUTROPHILS % 84.9 % (38.7-80.0); PLATELET COUNT 245 x10e3/uL (140-360); RED BLOOD COUNT 3.77 x10e6/uL (4.3-5.7); RED CELL DISTRIBUTION WIDTH 16.1 % (11.7-14.4)
[2021-08-16] MEDS: SODIUM CHLORIDE 0.9% 1000ML 1,000 ML IV SCH (06:50)
[2021-08-16 07:10] LABS: ALBUMIN 2.2 g/dL (3.5-5.0); ALBUMIN/GLOBULIN RATIO 0.7 (0.8-2.0); ANION GAP 15.2 mmol/L (8-16); CALCIUM 8.1 mg/dL (8.4-10.2); CREATININE, SERUM 1.3 mg/dL (0.72-1.25); POTASSIUM 4.2 mmol/L (3.5-5.1)
[2021-08-16] MEDS: ZINC SULFATE 220 MG CAP PO SCH (08:33)
[2021-08-16] MEDS: ASCORBIC ACID 500 MG TAB PO SCH ×2 (08:33→16:26)
[2021-08-16] MEDS: ACETAMINOPHEN 325 MG TAB PO PRN (08:34)
[2021-08-16] MEDS: DOCUSATE SODIUM LIQD 100 MG/10 ML UDC NG SCH ×2 (08:55→19:08)
[2021-08-16 09:09] LABS: ABG HCO3 27 mmol/L (22-26); ABG PCO2 49 mmHg (35-45); ABG PH 7.36 (7.35-7.45); ABG PO2 79 mmHg (80-105); ABG TCO2 29
[2021-08-16] MEDS: METOCLOPRAMIDE HCL 10 MG/2ML VIAL IV SCH ×2 (11:30→20:05)
[2021-08-16] MEDS: MICAFUNGIN SODIUM 100 ML IV SCH (12:00)
[2021-08-16] MEDS: LINEZOLID 600 MG/D5W 300ML 300 ML IV SCH ×2 (12:30→22:36)
[2021-08-16 12:50] LABS: ABG HCO3 27 mmol/L (22-26); ABG PCO2 60 mmHg (35-45); ABG PH 7.25 (7.35-7.45); ABG PO2 35 mmHg (80-105); ABG TCO2 29
[2021-08-16] MEDS: MEROPENEM 1 GM in SODIUM CHLORIDE 0.9% 100 ML IV SCH (16:26)
[2021-08-16] MEDS ORDERED: HEPARIN SOD (PORCINE) 1000 UNIT/ML SDV IV PRN (20:00)
[2021-08-16] MEDS ORDERED: SODIUM CHLORIDE 0.9% 1000ML 2,000 ML IV PRN (20:00)
[2021-08-16] MEDS: NOREPINEPHRINE 8 MG/D5W 250 ML 250 ML IV PRN ×2 (20:06→21:54)
[2021-08-17] VITALS (26 sets, daily range): BP systolic 86–109; BP diastolic 50–77
[2021-08-17] MEDS: MIDAZOLAM HCL 5MG/ML 10ML VIAL 100 ML IV PRN ×5 (00:11→21:31)
[2021-08-17] MEDS: FENTANYL 2000MCG/NS 250 250 ML IV SCH ×4 (00:12→20:44)
[2021-08-17] MEDS: SODIUM CHLORIDE 0.9% 1000ML 1,000 ML IV SCH ×2 (03:08→22:46)
[2021-08-17] MEDS: PROPOFOL IV EMULSION 10MG/ML 100 ML IV SCH ×6 (03:08→23:54)
[2021-08-17] MEDS: NOREPINEPHRINE 8 MG/D5W 250 ML 250 ML IV PRN ×4 (03:09→06:38)
[2021-08-17] MEDS: METOCLOPRAMIDE HCL 10 MG/2ML VIAL IV SCH ×3 (03:18→18:33)
[2021-08-17] MEDS: ENOXAPARIN SOD INJ 40 MG/0.4 ML SYR SC SCH (05:53)
[2021-08-17 06:30] LABS: BASOPHILS # (AUTO) 0.1 (0.0-0.1); BASOPHILS % 0.5 % (0.0-1.0); EOSINOPHILS # (AUTO) 0.3 (0.0-0.4); EOSINOPHILS % 1.8 % (0.0-6.0); HEMATOCRIT 39.7 % (38.2-49.6); HEMOGLOBIN 12.3 g/dL (14.0-18.0); LYMPHOCYTES # (AUTO) 0.9 (1.0-3.2); MEAN CORPUSCULAR VOLUME 103.4 fL (81-99); MONOCYTES # (AUTO) 0.9 (0.2-0.8); NEUTROPHILS # (AUTO) 15.6 (2.1-6.9); NEUTROPHILS % 82.5 % (38.7-80.0); PLATELET COUNT 267 x10e3/uL (140-360); RED BLOOD COUNT 3.84 x10e6/uL (4.3-5.7); RED CELL DISTRIBUTION WIDTH 16.5 % (11.7-14.4)
[2021-08-17 06:59] LABS: ALBUMIN 2.1 g/dL (3.5-5.0); ALBUMIN/GLOBULIN RATIO 0.6 (0.8-2.0); ANION GAP 14.7 mmol/L (8-16); CALCIUM 8.1 mg/dL (8.4-10.2); CREATININE, SERUM 1.53 mg/dL (0.72-1.25); POTASSIUM 4.7 mmol/L (3.5-5.1)
[2021-08-17 07:04] LABS: ABG HCO3 26 mmol/L (22-26); ABG PCO2 54 mmHg (35-45); ABG PH 7.28 (7.35-7.45); ABG PO2 134 mmHg (80-105); ABG TCO2 27
[2021-08-17] MEDS: ASCORBIC ACID 500 MG TAB PO SCH ×2 (08:11→17:33)
[2021-08-17] MEDS: ZINC SULFATE 220 MG CAP PO SCH (08:11)
[2021-08-17] MEDS: DOCUSATE SODIUM LIQD 100 MG/10 ML UDC NG SCH ×2 (08:11→17:33)
[2021-08-17] MEDS: LINEZOLID 600 MG/D5W 300ML 300 ML IV SCH ×2 (10:26→22:45)
[2021-08-17] MEDS: MICAFUNGIN SODIUM 100 ML IV SCH (11:45)
[2021-08-17] MEDS: NOREPINEPHRINE 8 MG/D5W 250 ML 250 ML IV SCH ×3 (12:56→22:03)
[2021-08-17 16:49] LABS: ABG HCO3 25 mmol/L (22-26); ABG PCO2 51 mmHg (35-45); ABG PO2 60 mmHg (80-105); ABG TCO2 27
[2021-08-17] MEDS: MEROPENEM 1 GM in SODIUM CHLORIDE 0.9% 100 ML IV SCH (17:33)
[2021-08-17] MEDS: ROCURONIUM 1250MG/NS 250 250 ML IV PRN ×2 (18:24→21:06)
[2021-08-18] VITALS (24 sets, daily range): BP systolic 90–109; BP diastolic 49–68
[2021-08-18] MEDS: NOREPINEPHRINE 8 MG/D5W 250 ML 250 ML IV SCH ×2 (02:08→03:15)
[2021-08-18] MEDS: MIDAZOLAM HCL 5MG/ML 10ML VIAL 100 ML IV PRN ×4 (02:54→18:47)
[2021-08-18] MEDS: METOCLOPRAMIDE HCL 10 MG/2ML VIAL IV SCH ×3 (02:54→20:30)
[2021-08-18] MEDS: PROPOFOL IV EMULSION 10MG/ML 100 ML IV SCH ×4 (03:16→21:09)
[2021-08-18] MEDS: FENTANYL 2000MCG/NS 250 250 ML IV SCH ×3 (03:54→13:00)
[2021-08-18 06:12] LABS: BASOPHILS # (AUTO) 0.1 (0.0-0.1); BASOPHILS % 0.5 % (0.0-1.0); EOSINOPHILS # (AUTO) 0.3 (0.0-0.4); EOSINOPHILS % 1.6 % (0.0-6.0); HEMATOCRIT 41.8 % (38.2-49.6); HEMOGLOBIN 12.9 g/dL (14.0-18.0); LYMPHOCYTES # (AUTO) 0.9 (1.0-3.2); LYMPHOCYTES % 4.2 % (18.0-39.1); MEAN CORPUSCULAR HEMOGLOBIN 31.6 pg (28-32); MEAN CORPUSCULAR HGB CONC 30.9 g/dL (31-35); MEAN CORPUSCULAR VOLUME 102.5 fL (81-99); MONOCYTES # (AUTO) 0.8 (0.2-0.8); NEUTROPHILS # (AUTO) 17.1 (2.1-6.9); NEUTROPHILS % 85.6 % (38.7-80.0); PLATELET COUNT 283 x10e3/uL (140-360); RED BLOOD COUNT 4.08 x10e6/uL (4.3-5.7); RED CELL DISTRIBUTION WIDTH 16.8 % (11.7-14.4)
[2021-08-18] MEDS: ENOXAPARIN SOD INJ 40 MG/0.4 ML SYR SC SCH (06:15)
[2021-08-18 06:40] LABS: ALBUMIN/GLOBULIN RATIO 0.5 (0.8-2.0); ANION GAP 16.5 mmol/L (8-16); CALCIUM 8.5 mg/dL (8.4-10.2); CREATININE, SERUM 1.75 mg/dL (0.72-1.25); POTASSIUM 4.5 mmol/L (3.5-5.1)
[2021-08-18] MEDS: DOCUSATE SODIUM LIQD 100 MG/10 ML UDC NG SCH ×2 (07:58→16:59)
[2021-08-18] MEDS: ZINC SULFATE 220 MG CAP PO SCH (07:58)
[2021-08-18] MEDS: ASCORBIC ACID 500 MG TAB PO SCH ×2 (07:58→16:59)
[2021-08-18 08:33] LABS: ABG HCO3 24 mmol/L (22-26); ABG PCO2 58 mmHg (35-45); ABG PH 7.22 (7.35-7.45); ABG PO2 57 mmHg (80-105); ABG TCO2 26
[2021-08-18] MEDS: LINEZOLID 600 MG/D5W 300ML 300 ML IV SCH ×2 (11:30→23:52)
[2021-08-18 14:34] LABS: ABG PCO2 51 mmHg (35-45); ABG PH 7.26 (7.35-7.45)
[2021-08-18 14:35] LABS: ABG HCO3 23 mmol/L (22-26); ABG PO2 62 mmHg (80-105); ABG TCO2 24
[2021-08-18] MEDS: MEROPENEM 1 GM in SODIUM CHLORIDE 0.9% 100 ML IV SCH (16:58)
[2021-08-18] MEDS: EYE LUBRICANT OPTH OINT 3.5GM TUBE OP SCH ×2 (17:31→17:32)
[2021-08-18] MEDS: SODIUM CHLORIDE 0.9% 1000ML 1,000 ML IV SCH (18:57)
[2021-08-18] MEDS: ROCURONIUM 1250MG/NS 250 250 ML IV PRN (21:10)
[2021-08-19] VITALS (24 sets, daily range): BP systolic 90–106; BP diastolic 49–70
[2021-08-19] MEDS: FENTANYL 2000MCG/NS 250 250 ML IV SCH ×5 (01:10→22:34)
[2021-08-19] MEDS: MIDAZOLAM HCL 5MG/ML 10ML VIAL 100 ML IV PRN ×4 (01:10→22:02)
[2021-08-19] MEDS: PROPOFOL IV EMULSION 10MG/ML 100 ML IV SCH ×3 (01:49→22:07)
[2021-08-19] MEDS: METOCLOPRAMIDE HCL 10 MG/2ML VIAL IV SCH ×3 (04:00→19:45)
[2021-08-19 06:18] LABS: BASOPHILS # (AUTO) 0.1 (0.0-0.1); BASOPHILS % 0.5 % (0.0-1.0); EOSINOPHILS # (AUTO) 0.5 (0.0-0.4); EOSINOPHILS % 2.8 % (0.0-6.0); HEMATOCRIT 40.2 % (38.2-49.6); HEMOGLOBIN 12.3 g/dL (14.0-18.0); LYMPHOCYTES # (AUTO) 1.1 (1.0-3.2); LYMPHOCYTES % 5.6 % (18.0-39.1); MEAN CORPUSCULAR HEMOGLOBIN 31.3 pg (28-32); MEAN CORPUSCULAR HGB CONC 30.6 g/dL (31-35); MEAN CORPUSCULAR VOLUME 102.3 fL (81-99); MONOCYTES # (AUTO) 0.8 (0.2-0.8); MONOCYTES % 4.1 % (4.4-11.3); NEUTROPHILS # (AUTO) 15.7 (2.1-6.9); PLATELET COUNT 257 x10e3/uL (140-360); RED BLOOD COUNT 3.93 x10e6/uL (4.3-5.7); RED CELL DISTRIBUTION WIDTH 17.2 % (11.7-14.4)
[2021-08-19] MEDS: ENOXAPARIN SOD INJ 40 MG/0.4 ML SYR SC SCH (06:18)
[2021-08-19 06:37] LABS: ALBUMIN 1.7 g/dL (3.5-5.0); ALBUMIN/GLOBULIN RATIO 0.4 (0.8-2.0); ANION GAP 15.1 mmol/L (8-16); CALCIUM 8.3 mg/dL (8.4-10.2); CREATININE, SERUM 1.52 mg/dL (0.72-1.25); POTASSIUM 4.1 mmol/L (3.5-5.1)
[2021-08-19 08:25] LABS: ABG HCO3 23 mmol/L (22-26); ABG PCO2 49 mmHg (35-45); ABG PH 7.27 (7.35-7.45); ABG PO2 61 mmHg (80-105); ABG TCO2 24
[2021-08-19] MEDS: DOCUSATE SODIUM LIQD 100 MG/10 ML UDC NG SCH ×2 (09:12→17:00)
[2021-08-19] MEDS: ZINC SULFATE 220 MG CAP PO SCH (09:12)
[2021-08-19] MEDS: ASCORBIC ACID 500 MG TAB PO SCH ×2 (09:12→19:28)
[2021-08-19] MEDS: EYE LUBRICANT OPTH OINT 3.5GM TUBE OP SCH ×2 (09:12→17:00)
[2021-08-19] MEDS: LINEZOLID 600 MG/D5W 300ML 300 ML IV SCH ×2 (13:00→23:30)
[2021-08-19] MEDS: SODIUM CHLORIDE 0.9% 1000ML 1,000 ML IV SCH (15:30)
[2021-08-19] MEDS: NOREPINEPHRINE 8 MG/D5W 250 ML 250 ML IV SCH ×2 (15:30→20:52)
[2021-08-19] MEDS: MEROPENEM 1 GM in SODIUM CHLORIDE 0.9% 100 ML IV SCH (17:00)
[2021-08-20] VITALS (28 sets, daily range): BP systolic 81–110; BP diastolic 50–77
[2021-08-20] MEDS: SODIUM CHLORIDE 0.9% 1000ML 1,000 ML IV SCH ×2 (02:35→21:30)
[2021-08-20] MEDS: PROPOFOL IV EMULSION 10MG/ML 100 ML IV SCH ×3 (02:35→21:36)
[2021-08-20] MEDS: MIDAZOLAM HCL 5MG/ML 10ML VIAL 100 ML IV PRN ×3 (03:44→18:51)
[2021-08-20] MEDS: METOCLOPRAMIDE HCL 10 MG/2ML VIAL IV SCH ×3 (03:50→20:25)
[2021-08-20] MEDS: FENTANYL 2000MCG/NS 250 250 ML IV SCH ×3 (05:13→20:00)
[2021-08-20] MEDS: ENOXAPARIN SOD INJ 40 MG/0.4 ML SYR SC SCH (05:31)
[2021-08-20 06:25] LABS: BASOPHILS # (AUTO) 0.2 (0.0-0.1); BASOPHILS % 0.8 % (0.0-1.0); EOSINOPHILS # (AUTO) 0.5 (0.0-0.4); EOSINOPHILS % 1.9 % (0.0-6.0); HEMATOCRIT 44.9 % (38.2-49.6); HEMOGLOBIN 13.8 g/dL (14.0-18.0); LYMPHOCYTES # (AUTO) 1.3 (1.0-3.2); LYMPHOCYTES % 5.2 % (18.0-39.1); MEAN CORPUSCULAR HEMOGLOBIN 31.8 pg (28-32); MEAN CORPUSCULAR HGB CONC 30.7 g/dL (31-35); MEAN CORPUSCULAR VOLUME 103.5 fL (81-99); MONOCYTES # (AUTO) 1.4 (0.2-0.8); MONOCYTES % 5.8 % (4.4-11.3); NEUTROPHILS # (AUTO) 20.1 (2.1-6.9); NEUTROPHILS % 81.7 % (38.7-80.0); PLATELET COUNT 366 x10e3/uL (140-360); RED BLOOD COUNT 4.34 x10e6/uL (4.3-5.7); RED CELL DISTRIBUTION WIDTH 18.1 % (11.7-14.4)
[2021-08-20 06:52] LABS: ALBUMIN 1.9 g/dL (3.5-5.0); ALBUMIN/GLOBULIN RATIO 0.4 (0.8-2.0); ANION GAP 17.7 mmol/L (8-16); CALCIUM 8.8 mg/dL (8.4-10.2); CREATININE, SERUM 1.87 mg/dL (0.72-1.25); POTASSIUM 4.7 mmol/L (3.5-5.1)
[2021-08-20] MEDS: NOREPINEPHRINE 8 MG/D5W 250 ML 250 ML IV SCH ×2 (07:00→15:00)
[2021-08-20 07:48] LABS: ABG PCO2 61 mmHg (35-45); ABG PH 7.19 (7.35-7.45); ABG PO2 54 mmHg (80-105)
[2021-08-20 07:49] LABS: ABG HCO3 23 mmol/L (22-26); ABG TCO2 25
[2021-08-20] MEDS: ZINC SULFATE 220 MG CAP PO SCH (09:08)
[2021-08-20] MEDS: DOCUSATE SODIUM LIQD 100 MG/10 ML UDC NG SCH ×2 (09:08→17:00)
[2021-08-20] MEDS: EYE LUBRICANT OPTH OINT 3.5GM TUBE OP SCH ×2 (09:08→17:00)
[2021-08-20] MEDS: ASCORBIC ACID 500 MG TAB PO SCH ×2 (09:08→17:00)
[2021-08-20] MEDS: LINEZOLID 600 MG/D5W 300ML 300 ML IV SCH ×2 (11:59→23:30)
[2021-08-20 13:12] LABS: ABG HCO3 22 mmol/L (22-26); ABG PCO2 50 mmHg (35-45); ABG PH 7.24 (7.35-7.45); ABG PO2 52 mmHg (80-105); ABG TCO2 23
[2021-08-20] MEDS: MEROPENEM 1 GM in SODIUM CHLORIDE 0.9% 100 ML IV SCH (17:00)
[2021-08-21] VITALS (25 sets, daily range): BP systolic 84–104; BP diastolic 41–67
[2021-08-21] MEDS: NOREPINEPHRINE 8 MG/D5W 250 ML 250 ML IV SCH ×4 (00:30→22:47)
[2021-08-21] MEDS: PROPOFOL IV EMULSION 10MG/ML 100 ML IV SCH ×5 (02:05→21:00)
[2021-08-21] MEDS: METOCLOPRAMIDE HCL 10 MG/2ML VIAL IV SCH ×3 (04:09→21:03)
[2021-08-21] MEDS: MIDAZOLAM HCL 5MG/ML 10ML VIAL 100 ML IV PRN ×6 (05:35→20:57)
[2021-08-21 06:39] LABS: BASOPHILS # (AUTO) 0.1 (0.0-0.1); BASOPHILS % 0.6 % (0.0-1.0); EOSINOPHILS # (AUTO) 0.3 (0.0-0.4); EOSINOPHILS % 1.4 % (0.0-6.0); HEMATOCRIT 43.6 % (38.2-49.6); HEMOGLOBIN 13.2 g/dL (14.0-18.0); LYMPHOCYTES # (AUTO) 1.4 (1.0-3.2); LYMPHOCYTES % 6.2 % (18.0-39.1); MEAN CORPUSCULAR HEMOGLOBIN 31.9 pg (28-32); MEAN CORPUSCULAR HGB CONC 30.3 g/dL (31-35); MEAN CORPUSCULAR VOLUME 105.3 fL (81-99); MONOCYTES # (AUTO) 1.5 (0.2-0.8); NEUTROPHILS # (AUTO) 17.8 (2.1-6.9); NEUTROPHILS % 80.5 % (38.7-80.0); PLATELET COUNT 333 x10e3/uL (140-360); RED BLOOD COUNT 4.14 x10e6/uL (4.3-5.7); RED CELL DISTRIBUTION WIDTH 18.5 % (11.7-14.4)
[2021-08-21 07:09] LABS: ALBUMIN 1.6 g/dL (3.5-5.0); ALBUMIN/GLOBULIN RATIO 0.3 (0.8-2.0); CALCIUM 8.6 mg/dL (8.4-10.2); CREATININE, SERUM 2.26 mg/dL (0.72-1.25)
[2021-08-21] MEDS: DOCUSATE SODIUM LIQD 100 MG/10 ML UDC NG SCH ×2 (08:59→16:30)
[2021-08-21] MEDS: ASCORBIC ACID 500 MG TAB PO SCH ×2 (09:00→16:30)
[2021-08-21] MEDS: ZINC SULFATE 220 MG CAP PO SCH (09:00)
[2021-08-21] MEDS: EYE LUBRICANT OPTH OINT 3.5GM TUBE OP SCH ×2 (09:00→16:30)
[2021-08-21 09:21] LABS: ABG HCO3 19 mmol/L (22-26); ABG PCO2 50 mmHg (35-45); ABG PH 7.19 (7.35-7.45); ABG PO2 50 mmHg (80-105); ABG TCO2 21
[2021-08-21] MEDS: FENTANYL 2000MCG/NS 250 250 ML IV SCH ×3 (10:03→23:54)
[2021-08-21] MEDS: VASOPRESSIN 60 UNIT in DEXTROSE 5% 50ML 57 ML IV PRN (10:03)
[2021-08-21] MEDS: LINEZOLID 600 MG/D5W 300ML 300 ML IV SCH ×2 (11:47→23:53)
[2021-08-21] MEDS: ROCURONIUM 1250MG/NS 250 250 ML IV PRN (13:21)
[2021-08-21 14:40] LABS: INR 1.36; PROTHROMBIN TIME 17.3 seconds (11.9-14.5)
[2021-08-21 14:41] LABS: PARTIAL THROMBOPLASTIN TIME 44.5 seconds (23.8-35.5)
[2021-08-22] VITALS (28 sets, daily range): BP systolic 82–133; BP diastolic 54–69
[2021-08-22] MEDS: PROPOFOL IV EMULSION 10MG/ML 100 ML IV SCH ×5 (01:38→20:38)
[2021-08-22] MEDS: MIDAZOLAM HCL 5MG/ML 10ML VIAL 100 ML IV PRN ×3 (01:52→13:00)
[2021-08-22] MEDS: METOCLOPRAMIDE HCL 10 MG/2ML VIAL IV SCH ×3 (03:51→19:49)
[2021-08-22] MEDS: SODIUM CHLORIDE 0.9% 1000ML 1,000 ML IV SCH (03:53)
[2021-08-22] MEDS: NOREPINEPHRINE 8 MG/D5W 250 ML 250 ML IV SCH ×4 (03:54→18:10)
[2021-08-22] MEDS ORDERED: PHENYLEPHRINE HCL IN 0.9% NACL 250 ML IV ONE (05:11)
[2021-08-22] MEDS: VASOPRESSIN 60 UNIT in DEXTROSE 5% 50ML 57 ML IV PRN (05:21)
[2021-08-22 06:43] LABS: BASOPHILS # (AUTO) 0.2 (0.0-0.1); BASOPHILS % 0.8 % (0.0-1.0); EOSINOPHILS # (AUTO) 0.3 (0.0-0.4); EOSINOPHILS % 1.2 % (0.0-6.0); HEMATOCRIT 41.4 % (38.2-49.6); HEMOGLOBIN 12.4 g/dL (14.0-18.0); LYMPHOCYTES # (AUTO) 1.5 (1.0-3.2); LYMPHOCYTES % 6.8 % (18.0-39.1); MEAN CORPUSCULAR HEMOGLOBIN 31.4 pg (28-32); MEAN CORPUSCULAR VOLUME 104.8 fL (81-99); MONOCYTES # (AUTO) 1.9 (0.2-0.8); MONOCYTES % 8.4 % (4.4-11.3); NEUTROPHILS # (AUTO) 17.4 (2.1-6.9); NEUTROPHILS % 77.4 % (38.7-80.0); PLATELET COUNT 290 x10e3/uL (140-360); RED BLOOD COUNT 3.95 x10e6/uL (4.3-5.7); RED CELL DISTRIBUTION WIDTH 18.1 % (11.7-14.4)
[2021-08-22] MEDS: FENTANYL 2000MCG/NS 250 250 ML IV SCH ×3 (06:49→21:20)
[2021-08-22 06:55] LABS: INR 1.23
[2021-08-22 07:18] LABS: ALBUMIN 1.6 g/dL (3.5-5.0); ALBUMIN/GLOBULIN RATIO 0.3 (0.8-2.0); ANION GAP 21.4 mmol/L (8-16); CALCIUM 8.6 mg/dL (8.4-10.2); CREATININE, SERUM 2.43 mg/dL (0.72-1.25); POTASSIUM 5.4 mmol/L (3.5-5.1)
[2021-08-22 08:14] LABS: ABG HCO3 23 mmol/L (22-26); ABG PCO2 64 mmHg (35-45); ABG PH 7.16 (7.35-7.45); ABG PO2 67 mmHg (80-105); ABG TCO2 24
[2021-08-22] MEDS: DOCUSATE SODIUM LIQD 100 MG/10 ML UDC NG SCH ×2 (08:30→16:28)
[2021-08-22] MEDS: ASCORBIC ACID 500 MG TAB PO SCH ×2 (08:30→16:28)
[2021-08-22] MEDS: EYE LUBRICANT OPTH OINT 3.5GM TUBE OP SCH ×2 (08:30→16:28)
[2021-08-22] MEDS: ZINC SULFATE 220 MG CAP PO SCH (08:30)
[2021-08-22 09:50] LABS: BAND NEUTROPHILS % (MANUAL) 1 %; EOSINOPHILS % (MANUAL) 1 % (0-7); LYMPHOCYTES % (MANUAL) 8 % (19-48); METAMYELOCYTES % (MANUAL) 1 % (0-0); MONOCYTES % (MANUAL) 4 % (3.4-9.0); MYELOCYTES % (MANUAL) 2 % (0-0); NEUTROPHILS % (MANUAL) 83 % (40-74); NUCLEATED RED BLOOD CELLS 1; PLATELET ESTIMATE ADEQUATE
[2021-08-22 09:51] LABS: POLYCHROMASIA FEW; RBC MORPHOLOGY COMMENT ABNORMAL; TEAR DROP CELLS FEW
[2021-08-22 09:52] LABS: PLATELET MORPHOLOGY COMMENT FEW LARGE
[2021-08-22] MEDS: LINEZOLID 600 MG/D5W 300ML 300 ML IV SCH ×2 (10:53→23:30)
[2021-08-22] MEDS ORDERED: SODIUM BICARBONATE 8.4% INJ 50 ML SYR IV ONE (11:00)
[2021-08-22] MEDS ORDERED: SODIUM BICARBONATE 8.4% 150 ML in DEXTROSE 5% 1,000 ML IV ONE (11:30)
[2021-08-23] VITALS (29 sets, daily range): BP systolic 87–110; BP diastolic 53–66
[2021-08-23] MEDS: MIDAZOLAM HCL 5MG/ML 10ML VIAL 100 ML IV PRN ×5 (00:18→21:20)
[2021-08-23] MEDS: PROPOFOL IV EMULSION 10MG/ML 100 ML IV SCH ×6 (01:37→21:47)
[2021-08-23] MEDS: METOCLOPRAMIDE HCL 10 MG/2ML VIAL IV SCH ×3 (03:30→19:28)
[2021-08-23] MEDS: FENTANYL 2000MCG/NS 250 250 ML IV SCH ×2 (04:21→11:16)
[2021-08-23] MEDS: NOREPINEPHRINE 8 MG/D5W 250 ML 250 ML IV SCH ×6 (04:52→21:47)
[2021-08-23 06:24] LABS: BASOPHILS # (AUTO) 0.2 (0.0-0.1); BASOPHILS % 0.9 % (0.0-1.0); EOSINOPHILS # (AUTO) 0.3 (0.0-0.4); EOSINOPHILS % 1.6 % (0.0-6.0); HEMATOCRIT 38.9 % (38.2-49.6); HEMOGLOBIN 12.1 g/dL (14.0-18.0); LYMPHOCYTES # (AUTO) 1.4 (1.0-3.2); MEAN CORPUSCULAR HEMOGLOBIN 31.5 pg (28-32); MEAN CORPUSCULAR HGB CONC 31.1 g/dL (31-35); MEAN CORPUSCULAR VOLUME 101.3 fL (81-99); MONOCYTES # (AUTO) 1.9 (0.2-0.8); MONOCYTES % 9.4 % (4.4-11.3); NEUTROPHILS # (AUTO) 15.1 (2.1-6.9); PLATELET COUNT 249 x10e3/uL (140-360); RED BLOOD COUNT 3.84 x10e6/uL (4.3-5.7)
[2021-08-23 06:45] LABS: ALBUMIN 1.4 g/dL (3.5-5.0); ALBUMIN/GLOBULIN RATIO 0.3 (0.8-2.0); ANION GAP 18.3 mmol/L (8-16); CALCIUM 7.9 mg/dL (8.4-10.2); CREATININE, SERUM 2.36 mg/dL (0.72-1.25); MAGNESIUM 1.8 MG/DL (1.3-2.1); PHOSPHORUS 6.2 MG/DL (2.3-4.7); POTASSIUM 4.3 mmol/L (3.5-5.1)
[2021-08-23] MEDS: VASOPRESSIN 60 UNIT in DEXTROSE 5% 50ML 57 ML IV PRN ×2 (07:04→18:09)
[2021-08-23 08:33] LABS: ABG HCO3 23 mmol/L (22-26); ABG PCO2 56 mmHg (35-45); ABG PH 7.23 (7.35-7.45); ABG PO2 84 mmHg (80-105); ABG TCO2 25
[2021-08-23] MEDS: ASCORBIC ACID 500 MG TAB PO SCH ×2 (09:35→16:15)
[2021-08-23] MEDS: ZINC SULFATE 220 MG CAP PO SCH (09:35)
[2021-08-23] MEDS: DOCUSATE SODIUM LIQD 100 MG/10 ML UDC NG SCH ×2 (09:35→16:15)
[2021-08-23] MEDS: EYE LUBRICANT OPTH OINT 3.5GM TUBE OP SCH ×2 (09:35→16:15)
[2021-08-23] MEDS: ROCURONIUM 1250MG/NS 250 250 ML IV PRN (09:36)
[2021-08-23] MEDS: LINEZOLID 600 MG/D5W 300ML 300 ML IV SCH ×2 (11:19→23:38)
[2021-08-23] MEDS: ENOXAPARIN 30 MG/0.3 ML SYR SC SCH (16:16)
[2021-08-24] VITALS (28 sets, daily range): BP systolic 53–102; BP diastolic 41–62
[2021-08-24] MEDS: FENTANYL 2000MCG/NS 250 250 ML IV SCH ×6 (00:33→21:18)
[2021-08-24] MEDS: NOREPINEPHRINE 8 MG/D5W 250 ML 250 ML IV SCH ×4 (01:54→21:42)
[2021-08-24] MEDS: MIDAZOLAM HCL 5MG/ML 10ML VIAL 100 ML IV PRN ×5 (02:49→23:10)
[2021-08-24] MEDS: PROPOFOL IV EMULSION 10MG/ML 100 ML IV SCH ×4 (03:25→17:44)
[2021-08-24] MEDS: METOCLOPRAMIDE HCL 10 MG/2ML VIAL IV SCH ×3 (03:34→19:40)
[2021-08-24 06:26] LABS: BASOPHILS # (AUTO) 0.1 (0.0-0.1); BASOPHILS % 0.7 % (0.0-1.0); EOSINOPHILS # (AUTO) 0.3 (0.0-0.4); EOSINOPHILS % 1.7 % (0.0-6.0); HEMATOCRIT 37.2 % (38.2-49.6); HEMOGLOBIN 11.8 g/dL (14.0-18.0); LYMPHOCYTES # (AUTO) 1.1 (1.0-3.2); LYMPHOCYTES % 5.7 % (18.0-39.1); MEAN CORPUSCULAR HEMOGLOBIN 31.6 pg (28-32); MEAN CORPUSCULAR HGB CONC 31.7 g/dL (31-35); MEAN CORPUSCULAR VOLUME 99.5 fL (81-99); MONOCYTES # (AUTO) 1.8 (0.2-0.8); MONOCYTES % 8.9 % (4.4-11.3); NEUTROPHILS # (AUTO) 15.1 (2.1-6.9); NEUTROPHILS % 76.9 % (38.7-80.0); PLATELET COUNT 229 x10e3/uL (140-360); RED BLOOD COUNT 3.74 x10e6/uL (4.3-5.7); RED CELL DISTRIBUTION WIDTH 18.1 % (11.7-14.4)
[2021-08-24 06:45] LABS: ALBUMIN 1.3 g/dL (3.5-5.0); ALBUMIN/GLOBULIN RATIO 0.3 (0.8-2.0); ANION GAP 19.4 mmol/L (8-16); CALCIUM 8.2 mg/dL (8.4-10.2); CREATININE, SERUM 2.49 mg/dL (0.72-1.25); POTASSIUM 4.4 mmol/L (3.5-5.1)
[2021-08-24] MEDS: ROCURONIUM 1250MG/NS 250 250 ML IV PRN (07:07)
[2021-08-24 08:22] LABS: ABG PCO2 52 mmHg (35-45); ABG PH 7.23 (7.35-7.45); ABG PO2 58 mmHg (80-105)
[2021-08-24 08:23] LABS: ABG HCO3 22 mmol/L (22-26); ABG TCO2 23
[2021-08-24] MEDS: EYE LUBRICANT OPTH OINT 3.5GM TUBE OP SCH ×2 (08:43→17:21)
[2021-08-24] MEDS: ZINC SULFATE 220 MG CAP PO SCH (08:43)
[2021-08-24] MEDS: ASCORBIC ACID 500 MG TAB PO SCH ×2 (08:43→17:21)
[2021-08-24] MEDS: DOCUSATE SODIUM LIQD 100 MG/10 ML UDC NG SCH ×2 (08:43→17:20)
[2021-08-24] MEDS ORDERED: PHENYLEPHRINE 10MG/ML VIAL 40 MG in DEXTROSE 5% 250ML 246 ML IV STA (09:25)
[2021-08-24] MEDS ORDERED: PHENYLEPHRINE HCL IN 0.9% NACL 250 ML IV ONE (09:40)
[2021-08-24] MEDS: LINEZOLID 600 MG/D5W 300ML 300 ML IV SCH ×2 (10:19→23:30)
[2021-08-24] MEDS: VASOPRESSIN 60 UNIT in DEXTROSE 5% 50ML 57 ML IV PRN (10:20)
[2021-08-24] MEDS ORDERED: HEPARIN SOD (PORCINE) 1000 UNIT/ML SDV ONE (13:44)
[2021-08-24] MEDS ORDERED: ALBUMIN 25% 12.5GM 0.25 GM/ML BTL IV NR (16:30)
[2021-08-24] MEDS: ENOXAPARIN 30 MG/0.3 ML SYR SC SCH (17:21)
[2021-08-24 19:00] LABS: ABG HCO3 17 mmol/L (22-26); ABG PCO2 55 mmHg (35-45); ABG PH 7.11 (7.35-7.45); ABG PO2 59 mmHg (80-105); ABG TCO2 19
[2021-08-24] MEDS: MEROPENEM 1 GM in SODIUM CHLORIDE 0.9% 100 ML IV SCH ×2 (20:00→22:52)
[2021-08-24] MEDS: PHENYLEPHRINE 10MG/ML VIAL 40 MG in SODIUM CHLORIDE 0.9% 250ML 246 ML IV PRN (21:35)
[2021-08-25] VITALS (16 sets, daily range): BP systolic 34–64; BP diastolic 29–41
[2021-08-25] MEDS: PHENYLEPHRINE 10MG/ML VIAL 40 MG in SODIUM CHLORIDE 0.9% 250ML 246 ML IV PRN ×2 (01:01→04:45)
[2021-08-25] MEDS: NOREPINEPHRINE 8 MG/D5W 250 ML 250 ML IV SCH ×3 (01:50→11:00)
[2021-08-25] MEDS: METOCLOPRAMIDE HCL 10 MG/2ML VIAL IV SCH ×2 (03:20→11:51)
[2021-08-25] MEDS: VASOPRESSIN 60 UNIT in DEXTROSE 5% 50ML 57 ML IV PRN (03:53)
[2021-08-25] MEDS: FENTANYL 2000MCG/NS 250 250 ML IV SCH ×2 (04:17→08:30)
[2021-08-25] MEDS: MIDAZOLAM HCL 5MG/ML 10ML VIAL 100 ML IV PRN ×2 (04:18→08:30)
[2021-08-25] MEDS: MEROPENEM 1 GM in SODIUM CHLORIDE 0.9% 100 ML IV SCH (06:19)
[2021-08-25 06:27] LABS: BASOPHILS # (AUTO) 0.3 (0.0-0.1); BASOPHILS % 1.3 % (0.0-1.0); EOSINOPHILS # (AUTO) 0.1 (0.0-0.4); EOSINOPHILS % 0.2 % (0.0-6.0); HEMATOCRIT 36.8 % (38.2-49.6); HEMOGLOBIN 10.3 g/dL (14.0-18.0); LYMPHOCYTES % 7.8 % (18.0-39.1); MEAN CORPUSCULAR HEMOGLOBIN 31.9 pg (28-32); MEAN CORPUSCULAR VOLUME 113.9 fL (81-99); MONOCYTES # (AUTO) 2.4 (0.2-0.8); MONOCYTES % 9.5 % (4.4-11.3); NEUTROPHILS # (AUTO) 17.5 (2.1-6.9); NEUTROPHILS % 68.2 % (38.7-80.0); PLATELET COUNT 173 x10e3/uL (140-360); RED BLOOD COUNT 3.23 x10e6/uL (4.3-5.7); RED CELL DISTRIBUTION WIDTH 18.8 % (11.7-14.4)
[2021-08-25] MEDS: ROCURONIUM 1250MG/NS 250 250 ML IV PRN (06:27)
[2021-08-25] MEDS ORDERED: SODIUM CHLORIDE 0.9% 250ML 250 ML ONE (06:38)
[2021-08-25 07:40] LABS: ALBUMIN/GLOBULIN RATIO 0.5 (0.8-2.0); ANION GAP 34.9 mmol/L (8-16); CALCIUM 7.5 mg/dL (8.4-10.2); CREATININE, SERUM 2.98 mg/dL (0.72-1.25); POTASSIUM 4.9 mmol/L (3.5-5.1)
[2021-08-25 08:00] LABS: BAND NEUTROPHILS % (MANUAL) 6 %; LYMPHOCYTES % (MANUAL) 12 % (19-48); METAMYELOCYTES % (MANUAL) 1 % (0-0); MONOCYTES % (MANUAL) 8 % (3.4-9.0); MYELOCYTES % (MANUAL) 6 % (0-0); NEUTROPHILS % (MANUAL) 66 % (40-74); NUCLEATED RED BLOOD CELLS 8; PROMYELOCYTES % (MANUAL) 1 % (0-0)
[2021-08-25 08:08] LABS: PAPPENHEIMER BODIES FEW; PLATELET ESTIMATE ADEQUATE; PLATELET MORPHOLOGY COMMENT NORMAL
[2021-08-25 08:11] LABS: ANISOCYTOSIS MODERATE; HYPOCHROMASIA SLIGHT; RBC MORPHOLOGY COMMENT ABNORMAL
[2021-08-25 08:12] LABS: POLYCHROMASIA FEW
[2021-08-25] MEDS: PHENYLEPHRINE 10MG/ML VIAL 40 MG in DEXTROSE 5% 250ML 246 ML IV PRN ×2 (08:30→11:00)
[2021-08-25] MEDS: DOCUSATE SODIUM LIQD 100 MG/10 ML UDC NG SCH (08:34)
[2021-08-25] MEDS: EYE LUBRICANT OPTH OINT 3.5GM TUBE OP SCH (08:34)
[2021-08-25] MEDS: ASCORBIC ACID 500 MG TAB PO SCH (08:34)
[2021-08-25] MEDS: ZINC SULFATE 220 MG CAP PO SCH (08:34)
[2021-08-25 08:44] LABS: ABG HCO3 8 mmol/L (22-26); ABG PCO2 61 mmHg (35-45); ABG PH 6.74 (7.35-7.45); ABG PO2 52 mmHg (80-105); ABG TCO2 10
[2021-08-25] MEDS ORDERED: SODIUM BICARBONATE 8.4% INJ 50 ML SYR IV STA (08:51)
[2021-08-25] MEDS ORDERED: SODIUM BICARBONATE 8.4% 150 ML in DEXTROSE 5% 1,000 ML IV ONE (09:00)
[2021-08-25] MEDS ORDERED: DEXTROSE 50% SYRINGE 50 ML IV ONE (10:32)
[2021-08-25] MEDS: LINEZOLID 600 MG/D5W 300ML 300 ML IV SCH (11:40)
[2021-08-25] MEDS ORDERED: EPINEPHRINE HCL SYRINGE ONE (14:58)
[2021-08-25] MEDS ORDERED: SODIUM BICARBONATE 8.4% INJ 50 ML SYR ONE (14:58)
[2021-08-25] MEDS ORDERED: BALSAM PERU/CASTOR OIL 60 GM OINT...G. TP SCH (15:00)
== END 2021-08-25 12:30 | disposition expired | DRG 207 ==
LOC: ER 10:08 → ERHOLD 11:09 → ICU 07-28 15:03 → COVIDICU 08-07 11:00
PROC: 3E0333Z Introduction of Anti-inflammatory into Peripheral Vein, Percutaneous Approach (ICD-10-PCS; 2021-07-27)
PROC: XW033E5 Introduction of Remdesivir Anti-infective into Peripheral Vein, Percutaneous Approach, New Technology Group 5 (ICD-10-PCS; 2021-07-27)
PROC: 5A1955Z Respiratory Ventilation, Greater than 96 Consecutive Hours (ICD-10-PCS; principal; 2021-08-06)
PROC: 0BH17EZ Insertion of Endotracheal Airway into Trachea, Via Natural or Artificial Opening (ICD-10-PCS; 2021-08-06)
PROC: 03HC33Z Insertion of Infusion Device into Left Radial Artery, Percutaneous Approach (ICD-10-PCS; 2021-08-06)
PROC: 3E043XZ Introduction of Vasopressor into Central Vein, Percutaneous Approach (ICD-10-PCS; 2021-08-08)
PROC: 02HV33Z Insertion of Infusion Device into Superior Vena Cava, Percutaneous Approach (ICD-10-PCS; 2021-08-13)
PROC: B548ZZA Ultrasonography of Superior Vena Cava, Guidance (ICD-10-PCS; 2021-08-13)
PROC: 5A1D70Z Performance of Urinary Filtration, Intermittent, Less than 6 Hours Per Day (ICD-10-PCS; 2021-08-13)
PROC: 5A12012 Performance of Cardiac Output, Single, Manual (ICD-10-PCS; 2021-08-25)
DX: U07.1 COVID-19 (principal); J12.82 Pneumonia due to coronavirus disease 2019; J96.01 Acute respiratory failure with hypoxia; A41.89 Other specified sepsis; R65.21 Severe sepsis with septic shock; J15.9 Unspecified bacterial pneumonia; K72.00 Acute and subacute hepatic failure without coma; N17.0 Acute kidney failure with tubular necrosis; B17.8 Other specified acute viral hepatitis; E87.2 Acidosis; I47.1 Supraventricular tachycardia; Z68.41 Body mass index [BMI] 40.0-44.9, adult; Z83.3 Family history of diabetes mellitus; Z82.49 Family history of ischemic heart disease and other diseases of the circulatory system; F17.290 Nicotine dependence, other tobacco product, uncomplicated; R73.9 Hyperglycemia, unspecified; E66.9 Obesity, unspecified; K27.9 Peptic ulcer, site unspecified, unspecified as acute or chronic, without hemorrhage or perforation; Z87.891 Personal history of nicotine dependence; E87.6 Hypokalemia; R50.9 Fever, unspecified; E88.09 Other disorders of plasma-protein metabolism, not elsewhere classified; Y95 Nosocomial condition; E87.70 Fluid overload, unspecified; B97.29 Other coronavirus as the cause of diseases classified elsewhere
CPT/HCPCS: 36415; 36569; 36600; 71045; 74018; 80053; 80202; 82728; 82805; 82948; 83036; 83735; 84100; 84443; 84478; 85025; 85610; 85730; 86140; 86705; 86707; 87040; 87350; 87493; 90962; 92950; 93005; 94002; 94003; 94660; 99251; 99285; J0171; J0330; J0456; J0696; J1100; J1450; J1644; J1650; J1817; J1885; J1940; J2020; J2185; J2248; J2250; J2270; J2370; J2405; J2543; J2765; J3370; J3480; J7030; J7040; J7050; J7070; J7121; J7799; P9047; U0002